=== PATIENT | female | born 1935 | race Caucasian/White ===

== ENCOUNTER 2018-09-24 09:58 | Inpatient (IN) | payer MEDICARE ==
--- NOTE | 2018-09-24 10:39 | ED ---
Female Urogenital HPI - General Chief complaint: Vaginal Bleeding Stated complaint: Bleeding Time Seen by Provider: 09/24/18 10:19 Source: patient Mode of arrival: wheelchair Limitations: no limitations - History of Present Illness Initial comments: Patient is an 83-year-old female presenting for blood in the toilet. The patient states that this morning, she had a bowel movement as well as urination and there is bright red blood in the toilet. She states that showing takes a baby aspirin. She had another small bowel movement a couple hours later as well as urinated and there was no blood on toilet then. She denies any abdominal pain, nausea/vomiting/diarrhea, chest pain, shortness of breath as well as fevers or chills. She states that about a month ago, she was hospitalized for urinary tract infection but has been fine since then. She states that she does have her years and she is not sure if the blood was coming from her rectum and vagina or bladder. - Related Data Home Medications Medication Instructions Recorded Confirmed Albuterol Inhaler [Ventolin Hfa 2 puff INHALATION RT-BID 09/24/18 09/24/18 Inhaler] Aspirin [[place] Aspirin EC] 81 mg PO DAILY 09/24/18 09/24/18 Ferrous Sulfate [Iron] 325 mg PO DAILY 09/24/18 09/24/18 Omeprazole 20 mg PO BID 09/24/18 09/24/18 Potassium Chloride ER [K-Dur 10] 10 meq PO DAILY 09/24/18 09/24/18 Spironolactone [Aldactone] 25 mg PO BID 09/24/18 09/24/18 Vit D 50mcg 50 mcg PO DAILY 09/24/18 09/24/18 Allergies Allergy/AdvReac Type Severity Reaction Status Date / Time No Known Allergies Allergy Verified 09/24/18 10:59 Review of Systems ROS Statement: Those systems with pertinent positive or pertinent negative responses have been documented in the HPI. Constitutional: Negative for chills, fatigue and fever. HENT: Negative for congestion. Respiratory: Negative for chest tightness, shortness of breath and wheezing. Negative for cough Cardiovascular: Negative for chest pain and palpitations. Gastrointestinal: Negative for abdominal pain. Negative for abdominal distention, diarrhea, nausea and vomiting. Genitourinary: Negative for dysuria. Bleeding from genitourinary area. Musculoskeletal: Negative for back pain, neck pain and neck stiffness. Skin: Negative for color change. Neurological: Negative for dizziness, speech difficulty, weakness and light- headedness. Psychiatric/Behavioral: Negative for agitation and confusion. Negative for anxiety ROS Other: All systems not noted in ROS Statement are negative. Past Medical History Past Medical History: CVA/TIA, GERD/Reflux, Hyperlipidemia Additional Past Medical History / Comment(s): lymphedema, UTI History of Any Multi-Drug Resistant Organisms: None Reported Past Surgical History: Appendectomy, Cholecystectomy Past Psychological History: No Psychological Hx Reported Smoking Status: Never smoker Past Alcohol Use History: None Reported Past Drug Use History: None Reported General Exam - General Exam Comments Initial Comments: Constitutional: Pt appears well-developed and well-nourished. No distress. Head: Normocephalic and atraumatic. Eyes: EOM are normal. Neck: Normal range of motion. Neck supple. Cardiovascular: Normal rate, regular rhythm, S1 normal, S2 normal and normal heart sounds. Exam reveals no gallop and no friction rub. No murmur heard. Pulmonary/Chest: Effort normal and breath sounds normal. No tachypnea and no bradypnea. No respiratory distress. No wheezes or rales noted. Abdominal: Soft. Bowel sounds are normal. Pt exhibits no shifting dullness, no distension, no pulsatile liver, no fluid wave, no abdominal bruit and no ascites. There is no rigidity, no rebound, no guarding, no tenderness at McBurney's point and negative Turner's sign. There is no tenderness. Musculoskeletal: Normal range of motion. Neurological: Pt is alert and oriented to person, place, and time. No cranial nerve deficit. Skin: Skin is warm and dry. No rash noted. Pt is not diaphoretic. No erythema. No pallor. Psychiatric: Pt has a normal mood and affect. Pt behavior is normal. Thought content normal. Limitations: no limitations Course Vital Signs 09/24/18 09/24/18 09/24/18 10:10 11:00 12:00 Temperature 96 F L Pulse Rate 77 77 79 Respiratory 18 15 18 Rate Blood Pressure 101/55 110/50 109/65 O2 Sat by Pulse 97 96 96 Oximetry Medical Decision Making - Medical Decision Making Laboratory studies showed that hemoglobin was stable to 11.3 but there was evidence of transaminitis with AST measuring 100, ALT 6 C5 and alk phos 289. However, because the patient was not having any pain and stated that she was also scheduled to follow-up with GI doctor tomorrow, imaging was not completed. More concerning, patient was guaiac positive and has Darvocet opinion with a platelet count of 50. Because of this, patient will need to be admitted for further evaluation and was started on Protonix. Urinalysis was consistent with a urinary tract infection and therefore she will also be given Rocephin. Explained all labs and diagnostic test results and that we will admit patient to hospital. Pt is agreeable to plan and case has been discussed with Dr. Lyle and they agree to accept the pt. - Lab Data Result diagrams: 09/24/18 10:50 09/24/18 10:50 Lab Results 09/24/18 09/24/18 09/24/18 Range/Units 10:50 10:50 10:50 WBC 4.3 (3.8-10.6) k/uL RBC 3.55 L (3.80-5.40) m/uL Hgb 11.3 L (11.4-16.0) gm/dL Hct 36.2 (34.0-46.0) % MCV 101.8 H (80.0-100.0) fL MCH 31.8 (25.0-35.0) pg MCHC 31.2 (31.0-37.0) g/dL RDW 16.5 H (11.5-15.5) % Plt Count 50 L (150-450) k/uL Neutrophils % 67 % Lymphocytes % 16 % Monocytes % 10 % Eosinophils % 4 % Basophils % 1 % Neutrophils # 2.9 (1.3-7.7) k/uL Lymphocytes # 0.7 L (1.0-4.8) k/uL Monocytes # 0.4 (0-1.0) k/uL Eosinophils # 0.2 (0-0.7) k/uL Basophils # 0.0 (0-0.2) k/uL Manual Slide Review Performed Hypochromasia Slight Anisocytosis Slight Macrocytosis Moderate PT 12.8 H (9.0-12.0) sec INR 1.2 H (<1.2) APTT 28.1 (22.0-30.0) sec Sodium 138 (137-145) mmol/L Potassium 5.4 H (3.5-5.1) mmol/L Chloride 106 (98-107) mmol/L Carbon Dioxide 27 (22-30) mmol/L Anion Gap 5 mmol/L BUN 25 H (7-17) mg/dL Creatinine 0.84 (0.52-1.04) mg/dL Est GFR (CKD-EPI)AfAm 74 (>60 ml/min/1.73 sqM) Est GFR (CKD-EPI)NonAf 64 (>60 ml/min/1.73 sqM) Glucose 98 (74-99) mg/dL Calcium 9.6 (8.4-10.2) mg/dL Magnesium 1.7 (1.6-2.3) mg/dL Total Bilirubin 2.3 H (0.2-1.3) mg/dL AST 100 H (14-36) U/L ALT 65 H (9-52) U/L Alkaline Phosphatase 289 H (38-126) U/L Troponin I (0.000-0.034) ng/mL Total Protein 5.4 L (6.3-8.2) g/dL Albumin 2.8 L (3.5-5.0) g/dL Urine Color Urine Appearance (Clear) Urine RBC (0-5) /hpf Urine WBC (0-5) /hpf Stool Occult Blood (Negative) 09/24/18 09/24/18 09/24/18 Range/Units 10:50 11:42 11:42 WBC (3.8-10.6) k/uL RBC (3.80-5.40) m/uL Hgb (11.4-16.0) gm/dL Hct (34.0-46.0) % MCV (80.0-100.0) fL MCH (25.0-35.0) pg MCHC (31.0-37.0) g/dL RDW (11.5-15.5) % Plt Count (150-450) k/uL Neutrophils % % Lymphocytes % % Monocytes % % Eosinophils % % Basophils % % Neutrophils # (1.3-7.7) k/uL Lymphocytes # (1.0-4.8) k/uL Monocytes # (0-1.0) k/uL Eosinophils # (0-0.7) k/uL Basophils # (0-0.2) k/uL Manual Slide Review Hypochromasia Anisocytosis Macrocytosis PT (9.0-12.0) sec INR (<1.2) APTT (22.0-30.0) sec Sodium (137-145) mmol/L Potassium (3.5-5.1) mmol/L Chloride (98-107) mmol/L Carbon Dioxide (22-30) mmol/L Anion Gap mmol/L BUN (7-17) mg/dL Creatinine (0.52-1.04) mg/dL Est GFR (CKD-EPI)AfAm (>60 ml/min/1.73 sqM) Est GFR (CKD-EPI)NonAf (>60 ml/min/1.73 sqM) Glucose (74-99) mg/dL Calcium (8.4-10.2) mg/dL Magnesium (1.6-2.3) mg/dL Total Bilirubin (0.2-1.3) mg/dL AST (14-36) U/L ALT (9-52) U/L Alkaline Phosphatase (38-126) U/L Troponin I <0.012 (0.000-0.034) ng/mL Total Protein (6.3-8.2) g/dL Albumin (3.5-5.0) g/dL Urine Color Dark Red Urine Appearance Bloody H (Clear) Urine RBC >182 H (0-5) /hpf Urine WBC 72 H (0-5) /hpf Stool Occult Blood Positive H (Negative) Disposition Clinical Impression: GI bleeding, Thrombocytopenia, Transaminitis, Urinary tract infection Disposition: ADMITTED IP TO THIS [facility] Condition: Fair Referrals: Tera Marsh MD [Primary Care Provider] - 1-2 days Decision to Admit Reason: Admit from EC Decision Date: 09/24/18 Decision Time: 12:54
[2018-09-24 11:21] LABS: Albumin 2.8 g/dL (3.5-5.0); Calcium 9.6 mg/dL (8.4-10.2); INR 1.2 (<1.2); Magnesium 1.7 mg/dL (1.6-2.3); Partial Thromboplastin Time 28.1 sec (22.0-30.0); Potassium 5.4 mmol/L (3.5-5.1); Prothrombin Time 12.8 sec (9.0-12.0); Total Bilirubin 2.3 mg/dL (0.2-1.3); Total Protein 5.4 g/dL (6.3-8.2)
[2018-09-24 11:46] LABS: Anisocytosis Slight; Basophils % (A) 1 %; Eosinophils # (A) 0.2 k/uL (0-0.7); Eosinophils % (A) 4 %; HCT 36.2 % (34.0-46.0); HGB 11.3 gm/dL (11.4-16.0); Hypochromasia Slight; Lymphocytes # (A) 0.7 k/uL (1.0-4.8); Lymphocytes % (A) 16 %; MCH 31.8 pg (25.0-35.0); MCHC 31.2 g/dL (31.0-37.0); MCV 101.8 fL (80.0-100.0); Macrocytosis Moderate; Mean Platelet Volume 9.3; Monocytes # (A) 0.4 k/uL (0-1.0); Monocytes % (A) 10 %; Neutrophils # (A) 2.9 k/uL (1.3-7.7); Neutrophils % (A) 67 %; RBC 3.55 m/uL (3.80-5.40); RDW 16.5 % (11.5-15.5); WBC 4.3 k/uL (3.8-10.6)
[2018-09-24 12:11] LABS: Platelet Count 50 k/uL (150-450)
[2018-09-24 12:23] LABS: RBC,Urine >182 /hpf (0-5); WBC,Urine 72 /hpf (0-5)
[2018-09-24 12:24] LABS: Appearance,Urine Bloody (Clear)
[2018-09-24 12:25] LABS: Color,Urine Dark Red
[2018-09-24] MEDS ORDERED: PANTOPRAZOLE 40 MG/10 ML VIAL IVP STA (12:50)
[2018-09-24] MEDS ORDERED: NALOXONE 0.4 MG/ML 1 ML VIAL IV PRN (12:50)
[2018-09-24] MEDS: SODIUM CHLORIDE 0.9% 1,000 ML IV SCH (13:31)
[2018-09-24] MEDS ORDERED: DEXTROSE 50%-WATER 50 ML SYRINGE IVP STA (15:45)
[2018-09-24] MEDS ORDERED: INSULIN REGULAR 100 UNIT/ML VIAL IV ONE (15:45)
--- NOTE | 2018-09-24 15:53 | P.HPIM ---
History of Present Illness H&P Date: 09/24/18 Chief Complaint: Fresh blood per rectum 83-year-old female with history of GERD and hyperlipidemia, and lymphedema Patient presented the hospital due to sudden onset fresh red blood per rectum. Patient is at her baseline status of health however she was hospitalized a month ago for UTI since then she's been debilitated. She is a walker to ambulate. Today she was using the restroom in the morning when she noticed blood in the toilet bowl for which she can't hospital for further evaluation patient denies any abdominal pain nausea vomiting denies any history of GI bleeding. Patient had another bowel movement later however she did not sense any blood in the toilet bowl. Patient also reports some dizziness and postural in nature however again she mentioned debility since her most recent hospitalization with ago. Where she was treated for UTI. Patient also reports outpatient workup with GI currently going on for possible obstructive jaundice patient had hepatitis panel done recently and was negative. She was scheduled to have further testing and a follow-up with GI on Wednesday. Patient denies taking any NSAIDs at home however she takes low dose of aspirin. In the ER pelvic exam was done and it seems like the bleeding is not vaginal per ER reports. Patient tested positive guaiac. Currently patient laying comfortable in bed not in any distress denies any s ymptoms of chest pain or trouble breathing or any abdominal pain. Denies any nausea or vomiting. Patient reports that she had a C scope many years ago and never had any abnormalities to her knowledge. Patient was found to have low platelet count of 50 however she denies any other sources of bleeding except for recent epistaxis Patient hemoglobin was 11.3 but we don't have any baseline Review of Systems Pertinent positives as noted in HPI. All other systems were reviewed and are negative Past Medical History Past Medical History: GERD/Reflux, Hyperlipidemia, Osteoarthritis (OA) Additional Past Medical History / Comment(s): lymphedema, UTI History of Any Multi-Drug Resistant Organisms: None Reported Past Surgical History: Appendectomy, Cholecystectomy, Orthopedic Surgery Additional Past Surgical History / Comment(s): right total knee Past Psychological History: No Psychological Hx Reported Smoking Status: Never smoker Past Alcohol Use History: None Reported Past Drug Use History: None Reported - Past Family History Mother History Unknown: Yes Father History Unknown: Yes Brother(s) Family Medical History: Dementia Daughter(s) Family Medical History: Thyroid Disorder Medications and Allergies Home Medications Medication Instructions Recorded Confirmed Type Albuterol Inhaler [Ventolin Hfa 2 puff INHALATION RT-BID 09/24/18 09/24/18 History Inhaler] Aspirin [[place] Aspirin EC] 81 mg PO DAILY 09/24/18 09/24/18 History Ferrous Sulfate [Iron] 325 mg PO DAILY 09/24/18 09/24/18 History Omeprazole 20 mg PO BID 09/24/18 09/24/18 History Potassium Chloride ER [K-Dur 10] 10 meq PO DAILY 09/24/18 09/24/18 History Spironolactone [Aldactone] 25 mg PO BID 09/24/18 09/24/18 History Vit D 50mcg 50 mcg PO DAILY 09/24/18 09/24/18 History Allergies Allergy/AdvReac Type Severity Reaction Status Date / Time No Known Allergies Allergy Verified 09/24/18 10:59 Physical Exam Vitals: Vital Signs Temp Pulse Pulse Resp BP BP Pulse Ox 09/24/18 15:12 65 18 112/69 09/24/18 13:50 96.9 F L 09/24/18 13:25 71 18 105/75 97 09/24/18 12:00 79 18 109/65 96 09/24/18 11:00 77 15 110/50 96 09/24/18 10:10 96 F L 77 18 101/55 97 Intake and Output 09/24/18 09/24/18 09/24/18 06:59 14:59 22:59 Other: # Voids 0 # Bowel Movements 0 Weight 132.812 kg Constitutional: No acute distress, conversant, pleasant Eyes: Anicteric sclerae, moist conjunctiva, no lid-lag Pupils equal round reactive to light ENMT: NC/AT Oropharynx clear, no erythema, exudates Neck: Supple, FROM, no masses, or JVD No carotid bruits No thyromegaly Lungs: Clear to auscultation Clear to percussion Normal respiratory effort, no accessory muscle use Cardiovascular: Heart regular in rate and rhythm, No murmurs, gallops, or rubs +2 peripheral edema bilaterally Abdominal: Soft Nontender, no guarding, rebound or rigidity Abdomen moving with respiration Normoactive bowel sounds No hepatomegaly, No splenomegaly No palpable mass No abdominal wall hernia noted Skin: There is area of skin sloughing and redness erythema over the lower abdomen and bilateral groins with foul smell no tenderness to palpation moist to the touch Normal temperature, tone, texture, turgor No induration No subcutaneous nodules No lesions No ulcers Extremities: No digital cyanosis No clubbing Pedal pulses are difficult to palpate due to bilateral foot swelling Radial pulses intact and symmetrical No calf tenderness Psychiatric: Alert and oriented to person, place not oriented to time Appropriate affect fair judgment Neuro Muscles Strength 4/5 in all 4 extremities Sensation to light touch grossly present throughout Cranial nerves II-XII grossly intact No focal sensory deficits Lymphatics: no palpable cervical or supraclavicular , or inguinal lymph nodes Results CBC & Chem 7: 09/24/18 10:50 09/24/18 10:50 Labs: Abnormal Lab Results - Last 24 Hours (Table) 09/24/18 09/24/18 09/24/18 Range/Units 10:50 10:50 10:50 RBC 3.55 L (3.80-5.40) m/uL Hgb 11.3 L (11.4-16.0) gm/dL MCV 101.8 H (80.0-100.0) fL RDW 16.5 H (11.5-15.5) % Plt Count 50 L (150-450) k/uL Lymphocytes # 0.7 L (1.0-4.8) k/uL PT 12.8 H (9.0-12.0) sec INR 1.2 H (<1.2) Potassium 5.4 H (3.5-5.1) mmol/L BUN 25 H (7-17) mg/dL Total Bilirubin 2.3 H (0.2-1.3) mg/dL AST 100 H (14-36) U/L ALT 65 H (9-52) U/L Alkaline Phosphatase 289 H (38-126) U/L Total Protein 5.4 L (6.3-8.2) g/dL Albumin 2.8 L (3.5-5.0) g/dL Urine Appearance (Clear) Urine RBC (0-5) /hpf Urine WBC (0-5) /hpf Stool Occult Blood (Negative) 09/24/18 09/24/18 Range/Units 11:42 11:42 RBC (3.80-5.40) m/uL Hgb (11.4-16.0) gm/dL MCV (80.0-100.0) fL RDW (11.5-15.5) % Plt Count (150-450) k/uL Lymphocytes # (1.0-4.8) k/uL PT (9.0-12.0) sec INR (<1.2) Potassium (3.5-5.1) mmol/L BUN (7-17) mg/dL Total Bilirubin (0.2-1.3) mg/dL AST (14-36) U/L ALT (9-52) U/L Alkaline Phosphatase (38-126) U/L Total Protein (6.3-8.2) g/dL Albumin (3.5-5.0) g/dL Urine Appearance Bloody H (Clear) Urine RBC >182 H (0-5) /hpf Urine WBC 72 H (0-5) /hpf Stool Occult Blood Positive H (Negative) Thrombosis Risk Factor Assmnt - Choose All That Apply Any of the Below Risk Factors Present?: Yes Each Factor Represents 1 point: Obesity (BMI >25), Swollen legs (current) Other Risk Factors: Yes Each Risk Factor Represents 3 Points: Age 75 years or older Thrombosis Risk Factor Assessment Total Risk Factor Score: 5 Thrombosis Risk Factor Assessment Level: High Risk Assessment and Plan Assessment: 83-year-old female with no significant past medical history admitted to an inpatient with anticipated length of stay more than 48 hours due to sudden onset GI bleeding with fresh red blood per rectum patient found to have thrombocytopenia and anemia admitted for further care and evaluation. Plan: acute blood loss anemia GI bleeding Subacute Transaminitis, elevated liver enzymes and bilirubin , negative recent testing for hepatitis mild hyperkalemia Thrombocytopenia Intertriginous candidal skin infection bilateral chronic lymphedema plan NPO IVF hydration monitor H and H q8 hours GI consult Hematology consult monitor vital signs fall precaution s PT/OT IV insulin and D50 and follow up K level Nystatin and triamcinolone to lower abdomen Discontinue antibiotics patient denies any urinary symptoms at this time. DVT ppx, SCDs Preformed a thorough record review from recent hospitalization at a different facility where she remained for 2 weeks was treated for UTI. There was one month ago. Surrogate decision-maker: *Patient daughter CODE STATUS: Full code Discussed with: Patient, ER, RN Anticipated discharge: 48-[address]: Home A total of 60 minutes was spent on the care of this complex patient more than 50% of the time was spent in counseling and care coordination.
[2018-09-24 16:14] LABS: Anisocytosis Slight; HCT 35.6 % (34.0-46.0); HGB 11.2 gm/dL (11.4-16.0); Hypochromasia Slight; MCHC 31.5 g/dL (31.0-37.0); MCV 101.7 fL (80.0-100.0); Macrocytosis Slight; Mean Platelet Volume 9.8; RDW 16.5 % (11.5-15.5); WBC 4.4 k/uL (3.8-10.6)
[2018-09-24 16:15] LABS: Platelet Count 43 k/uL (150-450)
[2018-09-24] MEDS ORDERED: NYSTATIN 100,000 UNIT/GM OINT 30 GM TUBE TOPICAL SCH (18:00)
[2018-09-24] MEDS ORDERED: NYSTAT-TRIAMCIN 100,000-0.1 UNIT/GM-% OINT 30 GM TUBE TOPICAL SCH (18:00)
[2018-09-24] MEDS: TRIAMCINOLONE ACET 0.1% OINTMENT 15 GM TUBE TOPICAL SCH ×2 (18:03→23:16)
[2018-09-24] MEDS: PANTOPRAZOLE 40 MG TABLET PO SCH (18:03)
[2018-09-24] MEDS: NYSTATIN 100,000 UNIT/GM OINT 30 GM TUBE TOPICAL SCH ×2 (18:03→23:16)
[2018-09-24] MEDS ORDERED: ALBUTEROL NEBULIZED 2.5 MG/3 ML INHALATION SCH (20:00)
[2018-09-24] MEDS: ALBUTEROL NEBULIZED 2.5 MG/3 ML INHALATION PRN (23:33)
[2018-09-25 00:49] LABS: Anisocytosis Slight; HCT 32.4 % (34.0-46.0); HGB 10.6 gm/dL (11.4-16.0); MCH 32.7 pg (25.0-35.0); MCHC 32.8 g/dL (31.0-37.0); MCV 99.8 fL (80.0-100.0); Macrocytosis Slight; Mean Platelet Volume 10.1; RBC 3.24 m/uL (3.80-5.40); RDW 17.8 % (11.5-15.5); WBC 4.1 k/uL (3.8-10.6)
[2018-09-25 00:52] LABS: Platelet Count 45 k/uL (150-450)
[2018-09-25] MEDS: SODIUM CHLORIDE 0.9% 1,000 ML IV SCH ×2 (03:54→14:04)
[2018-09-25] MEDS: PANTOPRAZOLE 40 MG TABLET PO SCH ×2 (06:25→17:20)
[2018-09-25 06:52] LABS: INR 1.3 (<1.2); Partial Thromboplastin Time 31.2 sec (22.0-30.0); Prothrombin Time 13.6 sec (9.0-12.0)
[2018-09-25 06:55] LABS: Anisocytosis Slight; Hypochromasia Slight
[2018-09-25 06:57] LABS: HCT 33.8 % (34.0-46.0); HGB 10.9 gm/dL (11.4-16.0); MCH 32.9 pg (25.0-35.0); MCHC 32.4 g/dL (31.0-37.0); MCV 101.7 fL (80.0-100.0); Macrocytosis Moderate; RBC 3.32 m/uL (3.80-5.40); WBC 3.9 k/uL (3.8-10.6)
[2018-09-25 06:58] LABS: Platelet Count 60 k/uL (150-450)
[2018-09-25 07:04] LABS: Albumin 2.5 g/dL (3.5-5.0); Calcium 9.3 mg/dL (8.4-10.2); Potassium 4.8 mmol/L (3.5-5.1); Total Bilirubin 1.9 mg/dL (0.2-1.3); Total Protein 4.9 g/dL (6.3-8.2)
[2018-09-25 07:27] LABS: Eosinophils # (M) 0.23 k/uL (0-0.7); Monocytes # (M) 0.43 k/uL (0-1.0); Neutrophils # (M) 2.57 k/uL (1.3-7.7); Neutrophils % (M) 66 %; Nucleated Red Blood Cells 1 /100 WBC (0-0); Total Cells Counted 200
[2018-09-25] MEDS: TRIAMCINOLONE ACET 0.1% OINTMENT 15 GM TUBE TOPICAL SCH ×4 (10:13→22:03)
[2018-09-25] MEDS: NYSTATIN 100,000 UNIT/GM OINT 30 GM TUBE TOPICAL SCH ×4 (10:14→22:03)
[2018-09-25 12:57] LABS: Anisocytosis Slight; Basophils % (A) 1 %; Eosinophils # (A) 0.1 k/uL (0-0.7); Eosinophils % (A) 3 %; HCT 32.6 % (34.0-46.0); HGB 10.6 gm/dL (11.4-16.0); Lymphocytes # (A) 0.5 k/uL (1.0-4.8); Lymphocytes % (A) 12 %; MCH 32.2 pg (25.0-35.0); MCHC 32.6 g/dL (31.0-37.0); MCV 98.7 fL (80.0-100.0); Macrocytosis Slight; Mean Platelet Volume 10.5; Monocytes # (A) 0.4 k/uL (0-1.0); Monocytes % (A) 9 %; Neutrophils # (A) 3.1 k/uL (1.3-7.7); Neutrophils % (A) 73 %; RDW 17.6 % (11.5-15.5); WBC 4.3 k/uL (3.8-10.6)
[2018-09-25 13:05] LABS: Platelet Count 54 k/uL (150-450)
[2018-09-25 13:08] LABS: Reticulocyte % 2.7 % (0.5-2.0)
[2018-09-25 13:45] LABS: D-Dimer 1.28 mg/L FEU (<0.60)
[2018-09-25] MEDS ORDERED: FUROSEMIDE 10 MG/ML 4 ML VIAL IV STA (15:45)
--- NOTE | 2018-09-25 15:46 | P.PN ---
Subjective Progress Note Date: 09/25/18 Principal diagnosis: follow up for GI bleeding and thrombocytopenia patient seen and examined , again still having bright red blood per rectum. however source is still confused at time with vaginal , with the possibility of bleeding from both sites. denies any chest pain or trouble breathing. toerlating PO intake Objective - Vital Signs Vital signs: Vital Signs Temp 96.5 F L 09/25/18 11:30 Pulse 83 09/25/18 11:30 Resp 18 09/25/18 11:30 BP 102/64 09/25/18 11:30 Pulse Ox 93 L 09/25/18 11:30 Intake & Output 09/24/18 09/25/18 09/25/18 18:59 06:59 18:59 Intake Total 360 480 Output Total 200 Balance 360 -200 480 Weight 132.812 kg 125.6 kg Intake: Oral 360 480 Output: Urine 200 Other: # Voids 0 1 1 # Bowel Movements 0 1 - Exam Constitutional: vital signs stable, Not in acute distress, pleasant, conversant , anasarca Lungs: Clear to auscultation bilaterally, clear to percussion, normal resp iratory effort no use of accessory muscles Cardiovascular: Regular rate and rhythm, no murmurs, no gallops, no rubs, +2 peripheral edema bialteral upper and lower extremities (chronic in her lower ext remities but new in her upper extremities) Gastrointestinal: Soft, no tenderness to palpation, no palpable hepatosplenomegally, bowel sounds positive, no abdominal wall hernias Extremities: No digital cyanosis or clubbing, peripheral pulses palpable and equal over bilateral radial arteries no calf muscle tenderness Psych: Alert, oriented to place, person and time, appropriate affect, intact ju dgment - Labs CBC & Chem 7: 09/25/18 12:03 09/25/18 06:17 Labs: Abnormal Lab Results - Last 24 Hours (Table) 09/24/18 09/25/18 09/25/18 Range/Units 15:28 00:39 06:17 RBC 3.50 L 3.24 L 3.32 L (3.80-5.40) m/uL Hgb 11.2 L 10.6 L 10.9 L (11.4-16.0) gm/dL Hct 32.4 L 33.8 L (34.0-46.0) % MCV 101.7 H 101.7 H (80.0-100.0) fL RDW 16.5 H 17.8 H 18.0 H (11.5-15.5) % Plt Count 43 L 45 L 60 L (150-450) k/uL Lymphocytes # (1.0-4.8) k/uL Lymphocytes # (Manual) 0.70 L (1.0-4.8) k/uL Nucleated RBCs 1 H (0-0) /100 WBC Retic Count (0.5-2.0) % PT (9.0-12.0) sec INR (<1.2) APTT (22.0-30.0) sec Fibrinogen (200-500) mg/dL D-Dimer (<0.60) mg/L FEU BUN (7-17) mg/dL Glucose (74-99) mg/dL Total Bilirubin (0.2-1.3) mg/dL AST (14-36) U/L ALT (9-52) U/L Alkaline Phosphatase (38-126) U/L Lactate Dehydrogenase (313-618) U/L Total Protein (6.3-8.2) g/dL Albumin (3.5-5.0) g/dL 09/25/18 09/25/18 09/25/18 Range/Units 06:17 06:17 12:03 RBC 3.30 L (3.80-5.40) m/uL Hgb 10.6 L (11.4-16.0) gm/dL Hct 32.6 L (34.0-46.0) % MCV (80.0-100.0) fL RDW 17.6 H (11.5-15.5) % Plt Count 54 L (150-450) k/uL Lymphocytes # 0.5 L (1.0-4.8) k/uL Lymphocytes # (Manual) (1.0-4.8) k/uL Nucleated RBCs (0-0) /100 WBC Retic Count (0.5-2.0) % PT 13.6 H (9.0-12.0) sec INR 1.3 H (<1.2) APTT 31.2 H (22.0-30.0) sec Fibrinogen (200-500) mg/dL D-Dimer (<0.60) mg/L FEU BUN 28 H (7-17) mg/dL Glucose 62 L (74-99) mg/dL Total Bilirubin 1.9 H (0.2-1.3) mg/dL AST 77 H (14-36) U/L ALT 64 H (9-52) U/L Alkaline Phosphatase 244 H (38-126) U/L Lactate Dehydrogenase (313-618) U/L Total Protein 4.9 L (6.3-8.2) g/dL Albumin 2.5 L (3.5-5.0) g/dL 09/25/18 09/25/18 09/25/18 Range/Units 12:03 12:03 12:03 RBC (3.80-5.40) m/uL Hgb (11.4-16.0) gm/dL Hct (34.0-46.0) % MCV (80.0-100.0) fL RDW (11.5-15.5) % Plt Count (150-450) k/uL Lymphocytes # (1.0-4.8) k/uL Lymphocytes # (Manual) (1.0-4.8) k/uL Nucleated RBCs (0-0) /100 WBC Retic Count 2.7 H (0.5-2.0) % PT (9.0-12.0) sec INR (<1.2) APTT (22.0-30.0) sec Fibrinogen 130 L (200-500) mg/dL D-Dimer 1.28 H (<0.60) mg/L FEU BUN (7-17) mg/dL Glucose (74-99) mg/dL Total Bilirubin (0.2-1.3) mg/dL AST (14-36) U/L ALT (9-52) U/L Alkaline Phosphatase (38-126) U/L Lactate Dehydrogenase 697 H (313-618) U/L Total Protein (6.3-8.2) g/dL Albumin (3.5-5.0) g/dL Microbiology - Last 24 Hours (Table) 09/24/18 11:42 Urine Culture - Preliminary Urine,Voided Assessment and Plan Assessment: 83-year-old female with no significant past medical history admitted to an inpatient with anticipated length of stay more than 48 hours due to sudden onset GI bleeding with fresh red blood per rectum patient found to have thrombocytopenia and anemia admitted for further care and evaluation. ER attending yesterday confirmed verbally that he did vaginal exam and there was no blood. family confirmed to me today that ER attending did perform vaginal exam to their knowledge. However , my physical exam yesterday i noticed blood over the vulva and pubic area. and today RN voiced suspicion of vaginal bleed as an extra source on top of the rectal bleed. Hence will get [employer] input for proper vaginal exam to rule out vaginal bleeding Plan: acute blood loss anemia, hemoglobin stable now GI bleeding , FOBT positive. suspicious Vaginal bleeding will obtain [employer] consult Subacute Transaminitis, elevated liver enzymes and bilirubin , negative recent testing for hepatitis was confirmed, liver enzymes improving today mild hyperkalemia, resolved Thrombocytopenia, unkown cause Intertriginous candidal skin infection, improving acute bilateral upper extremity swelling , and bilateral chronic lymphedema moderate protein calorie malnutrition plan liquid diet as tolerated DC IVF IV diuresis monitor H and H daily GI consult Hematology consult monitor vital signs fall precaution s PT/OT Nystatin and triamcinolone to lower abdomen patient was recently treated for UTI, currently denies any urinary symptoms . ABx discontinued DVT ppx, SCDs
--- NOTE | 2018-09-25 16:23 | P.CONS ---
History of Present Illness - Reason for Consult Consult date: 09/25/18 Anemia, Thrombocytopenia Requesting physician: Ricky Lyle - Chief Complaint Rectal Bleeding - History of Present Illness Ms Haynes presents to [facility] for complaints of rectal bleeding. She was recently hospitalized at [facility] for UTI and Debility, discharged to inpatient rehabilitation and since discharged home. She noticed the day prior to admission she was using the restroom and their was blood in the toilet and after wiping. She therefore presented for further evaluation. She denies any history of malignancy, bleeding issues, anemia, low platelets, or utilizing NSAIDS at home, however she does take a low dose aspirin that has since been stopped. ER evaluation consisted of a pelvic exam which did confirm there was not vaginal bleeding. Stool and urine are positive for blood. Last Colonoscopy was greater than 10 years ago She complains of worsening lower ext edema, new upper extremity edema Review of Systems A 14 point review of systems was assessed and completed and all negative except HPI. Past Medical History Past Medical History: GERD/Reflux, Hyperlipidemia, Osteoarthritis (OA) Additional Past Medical History / Comment(s): lymphedema, UTI History of Any Multi-Drug Resistant Organisms: None Reported Past Surgical History: Appendectomy, Cholecystectomy, Orthopedic Surgery Additional Past Surgical History / Comment(s): right total knee Past Psychological History: No Psychological Hx Reported Smoking Status: Never smoker Past Alcohol Use History: None Reported Past Drug Use History: None Reported - Past Family History Mother History Unknown: Yes Father History Unknown: Yes Brother(s) Family Medical History: Dementia Daughter(s) Family Medical History: Thyroid Disorder Medications and Allergies Home Medications Medication Instructions Recorded Confirmed Type Albuterol Inhaler [Ventolin Hfa 2 puff INHALATION RT-BID 09/24/18 09/24/18 History Inhaler] Aspirin [[place] Aspirin EC] 81 mg PO DAILY 09/24/18 09/24/18 History Ferrous Sulfate [Iron] 325 mg PO DAILY 09/24/18 09/24/18 History Omeprazole 20 mg PO BID 09/24/18 09/24/18 History Potassium Chloride ER [K-Dur 10] 10 meq PO DAILY 09/24/18 09/24/18 History Spironolactone [Aldactone] 25 mg PO BID 09/24/18 09/24/18 History Vit D 50mcg 50 mcg PO DAILY 09/24/18 09/24/18 History Allergies Allergy/AdvReac Type Severity Reaction Status Date / Time No Known Allergies Allergy Verified 09/24/18 10:59 Physical Exam Vitals: Vital Signs Temp Pulse Pulse Resp BP Pulse Ox 09/25/18 11:30 96.5 F L 83 18 102/64 93 L 09/25/18 09:10 96.6 F L 85 18 100/65 94 L 09/25/18 04:00 97 F L 74 16 106/68 97 09/25/18 00:00 97 F L 74 16 106/68 96 09/24/18 23:43 74 09/24/18 23:33 74 09/24/18 20:00 97 F L 76 16 129/77 95 Intake and Output 09/25/18 09/25/18 09/25/18 06:59 14:59 22:59 Intake Total 480 Output Total 200 Balance -200 480 Intake: Oral 480 Output: Urine 200 Other: # Voids 1 # Bowel Movements 1 Weight 125.6 kg Gen: NAD, Alert and oriented. Head: NC, NT No Cervical, Supraclavicular, or axillary adenopathy Neck is supple Lungs: Diminished, No increased effort Heart: RRR, S1s2 Abdomen: Obese, Non-tender, Non Distended Extremities BLE Edema, New Bilateral Upper extremity edema Neuro: No sensory or motor deficits. Results CBC & Chem 7: 09/25/18 12:03 09/25/18 06:17 Labs: Abnormal Lab Results - Last 24 Hours (Table) 09/24/18 09/25/18 09/25/18 Range/Units 15:28 00:39 06:17 RBC 3.50 L 3.24 L 3.32 L (3.80-5.40) m/uL Hgb 11.2 L 10.6 L 10.9 L (11.4-16.0) gm/dL Hct 32.4 L 33.8 L (34.0-46.0) % MCV 101.7 H 101.7 H (80.0-100.0) fL RDW 16.5 H 17.8 H 18.0 H (11.5-15.5) % Plt Count 43 L 45 L 60 L (150-450) k/uL Lymphocytes # (1.0-4.8) k/uL Lymphocytes # (Manual) 0.70 L (1.0-4.8) k/uL Nucleated RBCs 1 H (0-0) /100 WBC Retic Count (0.5-2.0) % PT (9.0-12.0) sec INR (<1.2) APTT (22.0-30.0) sec Fibrinogen (200-500) mg/dL D-Dimer (<0.60) mg/L FEU BUN (7-17) mg/dL Glucose (74-99) mg/dL Total Bilirubin (0.2-1.3) mg/dL AST (14-36) U/L ALT (9-52) U/L Alkaline Phosphatase (38-126) U/L Lactate Dehydrogenase (313-618) U/L Total Protein (6.3-8.2) g/dL Albumin (3.5-5.0) g/dL 09/25/18 09/25/18 09/25/18 Range/Units 06:17 06:17 12:03 RBC 3.30 L (3.80-5.40) m/uL Hgb 10.6 L (11.4-16.0) gm/dL Hct 32.6 L (34.0-46.0) % MCV (80.0-100.0) fL RDW 17.6 H (11.5-15.5) % Plt Count 54 L (150-450) k/uL Lymphocytes # 0.5 L (1.0-4.8) k/uL Lymphocytes # (Manual) (1.0-4.8) k/uL Nucleated RBCs (0-0) /100 WBC Retic Count (0.5-2.0) % PT 13.6 H (9.0-12.0) sec INR 1.3 H (<1.2) APTT 31.2 H (22.0-30.0) sec Fibrinogen (200-500) mg/dL D-Dimer (<0.60) mg/L FEU BUN 28 H (7-17) mg/dL Glucose 62 L (74-99) mg/dL Total Bilirubin 1.9 H (0.2-1.3) mg/dL AST 77 H (14-36) U/L ALT 64 H (9-52) U/L Alkaline Phosphatase 244 H (38-126) U/L Lactate Dehydrogenase (313-618) U/L Total Protein 4.9 L (6.3-8.2) g/dL Albumin 2.5 L (3.5-5.0) g/dL 09/25/18 09/25/18 09/25/18 Range/Units 12:03 12:03 12:03 RBC (3.80-5.40) m/uL Hgb (11.4-16.0) gm/dL Hct (34.0-46.0) % MCV (80.0-100.0) fL RDW (11.5-15.5) % Plt Count (150-450) k/uL Lymphocytes # (1.0-4.8) k/uL Lymphocytes # (Manual) (1.0-4.8) k/uL Nucleated RBCs (0-0) /100 WBC Retic Count 2.7 H (0.5-2.0) % PT (9.0-12.0) sec INR (<1.2) APTT (22.0-30.0) sec Fibrinogen 130 L (200-500) mg/dL D-Dimer 1.28 H (<0.60) mg/L FEU BUN (7-17) mg/dL Glucose (74-99) mg/dL Total Bilirubin (0.2-1.3) mg/dL AST (14-36) U/L ALT (9-52) U/L Alkaline Phosphatase (38-126) U/L Lactate Dehydrogenase 697 H (313-618) U/L Total Protein (6.3-8.2) g/dL Albumin (3.5-5.0) g/dL Microbiology - Last 24 Hours (Table) 09/24/18 11:42 Urine Culture - Preliminary Urine,Voided Assessment and Plan (1) Normocytic anemia Current Visit: Yes Status: Acute Code(s): D64.9 - ANEMIA, UNSPECIFIED SNOMED Code(s): 920139233 (2) GI bleeding Current Visit: Yes Status: Acute Code(s): K92.2 - GASTROINTESTINAL HEMORRHAGE, UNSPECIFIED SNOMED Code(s): 03158765 (3) Thrombocytopenia Current Visit: Yes Status: Acute Code(s): D69.6 - THROMBOCYTOPENIA, UNSPECIFIED SNOMED Code(s): 797617547 (4) Transaminitis Current Visit: Yes Status: Acute Code(s): R74.0 - NONSPEC ELEV OF LEVELS OF TRANSAMNS & LACTIC ACID DEHYDRGNSE SNOMED Code(s): 240843342 (5) Urinary tract infection Current Visit: Yes Status: Acute Code(s): N39.0 - URINARY TRACT INFECTION, SITE NOT SPECIFIED SNOMED Code(s): 43766866 Plan: Assessment and Recommendations: Normocytic Anemia: Secondary to acute GI Blood Loss Anemia - Further Anemia work-up ordered - Full GI Evaluation Recommended UTI: - In August at [facility] Cultures Positive Citrobacter Younge and Fatoumata - Requiring Prolonged Hospitalization at [facility] Increased abdominal, Upper and Lower extremity Edema: - Unknown etiology - Cardiology Eval - Imaging Chest further evaluation Increased Liver Transminitis: Thrombocytopenia: - Unknown baseline, prior smear Giant PLatelets. - Thrombocytopenia Evaluation PLan: - Imaging to assess Chest/Abd/Pelvis, further focus new bilateral UE Edema, evaluate Liver and Spleen - Anemia and thrombocytopenia Evaluation - Monitor Daily CBC and CMP - Obtain diagnostics from recent hospital stay Physician Attest: I have completed the full history and physical and devloped the above impression and plan, agree with dictation, dictated as a scribe
--- NOTE | 2018-09-25 17:24 | CT ---
EXAMINATION TYPE: CT ChestAbdPelvis w con DATE OF EXAM: 09/25/2018 COMPARISON: HISTORY: GI bleed, limb swelling CT DLP: 2841.6 mGycm Automated exposure control for dose reduction was used. CONTRAST: CT scan of the chest, abdomen and pelvis is performed without Oral Contrast and with IV Contrast, pat ient injected with 80 mL of Isovue 300. FINDINGS: There is moderate right pleural effusion. There is small left pleural effusion. Heart is enlarged. Th ere is no mediastinal adenopathy. There are no hilar masses. There is airspace consolidation and atel ectasis right lower lobe. There is interstitial infiltrate in the left lung. Liver shows no focal defect. Spleen appears normal. There is no pancreatic mass. Bile ducts are not d ilated. Gallbladder is absent. There is no adrenal mass. Kidneys show satisfactory contrast opacification. There is no hydronephrosi s. There is no retroperitoneal adenopathy. Bladder distends smoothly. There is some cystic enlargemen t of the endometrial cavity and the lower uterine segment. The lower uterine segment fluid could be a large cervical cyst that measures 2.6 cm. There is no inguinal hernia. There is mild free fluid in the pelvis. There is some fluid in the parac olic gutters. There is no sign of a bowel obstruction. There is no sign of free air. There is diffuse subcutaneous edema around the chest abdomen pelvis. Thoracic and lumbar spine appear intact. I see no bony destructive process. IMPRESSION: Diffuse subcutaneous edema could relate to anasarca or congestive heart failure. Large right pleural effusion and small left pleural effusion. Cardiomegaly. This is consistent with c ongestive heart failure. Right lower lobe consolidation and atelectasis. Mild ascites. Mild enlargement of the endometrial cavity with fluid. Large cervical cyst or cystic en largement of the lower uterine segment..
--- NOTE | 2018-09-25 18:07 | P.CONS ---
History of Present Illness - Reason for Consult Consult date: 09/25/18 Blood per rectum Requesting physician: Ricky Lyle - Chief Complaint Blood per rectum - History of Present Illness 83-year-old female with a medical history significant for GERD and hyperlipidemia and recent admission for urinary tract infection who presents with complaints of bright red blood in the toilet and with wiping. The patient was recently hospitalized and treated for a urinary tract infection after which she was discharged to a rehabilitation facility after which she went home. She presents with painless bright red blood per rectum. The patient denies any prior history of rectal bleeding, excessive NSAID use or anticoagulation. She reports a remote history of colonoscopy and EGD approximately 10 years ago but is unsure of the findings of that time. She denies any nausea, vomiting or hematemesis. The patient had stool testing in the ER which was positive for occult blood. She also had vaginal exam with no signs of bleeding noted. Patient's hemoglobin has been stable since admission with serial hemoglobins significant for findings of 11.3, looking 0.2, temperature 6 and most recently 10.9. INR 1.3. The patient has also recently noted on outpatient labs to have elevation in her liver enzymes and was scheduled for follow[facility]. She denies any prior history of liver disease or elevation in her liver enzymes. The patient also has complaints of worsening edema in the upper and lower extremities. Review of Systems REVIEW OF SYSTEMS: CONSTITUTIONAL: Denies any fevers, chills, weight change or fatigue. CARDIOVASCULAR: Denies any chest pain, palpitations high or low blood pressures RESPIRATORY: Denies any shortness of breath, hemoptysis or cough. GENITOURINARY: No dysuria or hematuria. MUSCULOSKELETAL: No weakness reported. SKIN: Denies any new rashes or lesions, jaundice or pallor. PSYCHIATRIC: Denies any depression or anxiety. NEUROLOGY: Denies headache, denies any new focal deficits. EARS/NOSE/THROAT: No recent hearing change, congestion, nasal discharge or sore throat. EYES: No pain in eyes, discharge or change in vision. GASTROINTESTINAL: As per HPI. Past Medical History Past Medical History: GERD/Reflux, Hyperlipidemia, Osteoarthritis (OA) Additional Past Medical History / Comment(s): lymphedema, UTI History of Any Multi-Drug Resistant Organisms: None Reported Past Surgical History: Appendectomy, Cholecystectomy, Orthopedic Surgery Additional Past Surgical History / Comment(s): right total knee Past Psychological History: No Psychological Hx Reported Smoking Status: Never smoker Past Alcohol Use History: None Reported Past Drug Use History: None Reported - Past Family History Mother History Unknown: Yes Father History Unknown: Yes Brother(s) Family Medical History: Dementia Daughter(s) Family Medical History: Thyroid Disorder Medications and Allergies Home Medications Medication Instructions Recorded Confirmed Type Albuterol Inhaler [Ventolin Hfa 2 puff INHALATION RT-BID 09/24/18 09/24/18 History Inhaler] Aspirin [[place] Aspirin EC] 81 mg PO DAILY 09/24/18 09/24/18 History Ferrous Sulfate [Iron] 325 mg PO DAILY 09/24/18 09/24/18 History Omeprazole 20 mg PO BID 09/24/18 09/24/18 History Potassium Chloride ER [K-Dur 10] 10 meq PO DAILY 09/24/18 09/24/18 History Spironolactone [Aldactone] 25 mg PO BID 09/24/18 09/24/18 History Vit D 50mcg 50 mcg PO DAILY 09/24/18 09/24/18 History Allergies Allergy/AdvReac Type Severity Reaction Status Date / Time No Known Allergies Allergy Verified 09/24/18 10:59 Physical Exam Vitals: Vital Signs Temp Pulse Pulse Resp BP BP Pulse Ox 09/25/18 09:10 96.6 F L 85 18 100/65 94 L 09/25/18 04:00 97 F L 74 16 106/68 97 09/25/18 00:00 97 F L 74 16 106/68 96 09/24/18 23:43 74 09/24/18 23:33 74 09/24/18 20:00 97 F L 76 16 129/77 95 09/24/18 15:12 65 18 112/69 09/24/18 13:50 96.9 F L 09/24/18 13:25 71 18 105/75 97 09/24/18 12:00 79 18 109/65 96 Intake and Output 09/24/18 09/25/18 09/25/18 22:59 06:59 14:59 Intake Total 360 360 Output Total 200 Balance 360 -200 360 Intake: Oral 360 360 Output: Urine 200 Other: # Voids 1 1 Weight 125.6 kg On physical examination, patient appears comfortable in no apparent distress. HEAD: Normocephalic, atraumatic. EYES: No scleral icterus. No conjunctival injection. MOUTH: No lesions, tongue midline. NECK: Trachea midline, no gross abnormalities. CHEST: Decreased air entry in all lung carmichael no wheezing or rhonchi appreciated. HEART: Regular rate and rhythm. ABDOMEN: Soft, obese. Bowel sounds are positive. No organomegaly. No guarding or rigidity. EXTREMITIES: Bilateral upper and lower extremity pitting edema. SKIN: No rashes, no jaundice. NEUROLOGIC: Alert and oriented x3. No focal deficits. Results CBC & Chem 7: 09/25/18 12:03 09/25/18 06:17 Labs: Abnormal Lab Results - Last 24 Hours (Table) 09/24/18 09/24/18 09/24/18 Range/Units 10:50 10:50 10:50 RBC 3.55 L (3.80-5.40) m/uL Hgb 11.3 L (11.4-16.0) gm/dL Hct (34.0-46.0) % MCV 101.8 H (80.0-100.0) fL RDW 16.5 H (11.5-15.5) % Plt Count 50 L (150-450) k/uL Lymphocytes # 0.7 L (1.0-4.8) k/uL Lymphocytes # (Manual) (1.0-4.8) k/uL Nucleated RBCs (0-0) /100 WBC PT 12.8 H (9.0-12.0) sec INR 1.2 H (<1.2) APTT (22.0-30.0) sec Potassium 5.4 H (3.5-5.1) mmol/L BUN 25 H (7-17) mg/dL Glucose (74-99) mg/dL Total Bilirubin 2.3 H (0.2-1.3) mg/dL AST 100 H (14-36) U/L ALT 65 H (9-52) U/L Alkaline Phosphatase 289 H (38-126) U/L Total Protein 5.4 L (6.3-8.2) g/dL Albumin 2.8 L (3.5-5.0) g/dL Urine Appearance (Clear) Urine RBC (0-5) /hpf Urine WBC (0-5) /hpf Stool Occult Blood (Negative) 09/24/18 09/24/18 09/24/18 Range/Units 11:42 11:42 15:28 RBC 3.50 L (3.80-5.40) m/uL Hgb 11.2 L (11.4-16.0) gm/dL Hct (34.0-46.0) % MCV 101.7 H (80.0-100.0) fL RDW 16.5 H (11.5-15.5) % Plt Count 43 L (150-450) k/uL Lymphocytes # (1.0-4.8) k/uL Lymphocytes # (Manual) (1.0-4.8) k/uL Nucleated RBCs (0-0) /100 WBC PT (9.0-12.0) sec INR (<1.2) APTT (22.0-30.0) sec Potassium (3.5-5.1) mmol/L BUN (7-17) mg/dL Glucose (74-99) mg/dL Total Bilirubin (0.2-1.3) mg/dL AST (14-36) U/L ALT (9-52) U/L Alkaline Phosphatase (38-126) U/L Total Protein (6.3-8.2) g/dL Albumin (3.5-5.0) g/dL Urine Appearance Bloody H (Clear) Urine RBC >182 H (0-5) /hpf Urine WBC 72 H (0-5) /hpf Stool Occult Blood Positive H (Negative) 09/25/18 09/25/18 09/25/18 Range/Units 00:39 06:17 06:17 RBC 3.24 L 3.32 L (3.80-5.40) m/uL Hgb 10.6 L 10.9 L (11.4-16.0) gm/dL Hct 32.4 L 33.8 L (34.0-46.0) % MCV 101.7 H (80.0-100.0) fL RDW 17.8 H 18.0 H (11.5-15.5) % Plt Count 45 L 60 L (150-450) k/uL Lymphocytes # (1.0-4.8) k/uL Lymphocytes # (Manual) 0.70 L (1.0-4.8) k/uL Nucleated RBCs 1 H (0-0) /100 WBC PT (9.0-12.0) sec INR (<1.2) APTT (22.0-30.0) sec Potassium (3.5-5.1) mmol/L BUN 28 H (7-17) mg/dL Glucose 62 L (74-99) mg/dL Total Bilirubin 1.9 H (0.2-1.3) mg/dL AST 77 H (14-36) U/L ALT 64 H (9-52) U/L Alkaline Phosphatase 244 H (38-126) U/L Total Protein 4.9 L (6.3-8.2) g/dL Albumin 2.5 L (3.5-5.0) g/dL Urine Appearance (Clear) Urine RBC (0-5) /hpf Urine WBC (0-5) /hpf Stool Occult Blood (Negative) 09/25/18 Range/Units 06:17 RBC (3.80-5.40) m/uL Hgb (11.4-16.0) gm/dL Hct (34.0-46.0) % MCV (80.0-100.0) fL RDW (11.5-15.5) % Plt Count (150-450) k/uL Lymphocytes # (1.0-4.8) k/uL Lymphocytes # (Manual) (1.0-4.8) k/uL Nucleated RBCs (0-0) /100 WBC PT 13.6 H (9.0-12.0) sec INR 1.3 H (<1.2) APTT 31.2 H (22.0-30.0) sec Potassium (3.5-5.1) mmol/L BUN (7-17) mg/dL Glucose (74-99) mg/dL Total Bilirubin (0.2-1.3) mg/dL AST (14-36) U/L ALT (9-52) U/L Alkaline Phosphatase (38-126) U/L Total Protein (6.3-8.2) g/dL Albumin (3.5-5.0) g/dL Urine Appearance (Clear) Urine RBC (0-5) /hpf Urine WBC (0-5) /hpf Stool Occult Blood (Negative) Microbiology - Last 24 Hours (Table) 09/24/18 11:42 Urine Culture - Preliminary Urine,Voided Assessment and Plan (1) GI bleeding Narrative/Plan: Patient presenting with complaints of painless bright red blood per rectum with stable hemoglobin found to be 11.3 on admission and 10.9 today after repeated blood draws. Differential is broad and includes hemorrhoidal bleeding, diverticular bleed, AVMs, malignancy or other etiology. Current Visit: Yes Status: Acute Code(s): K92.2 - GASTROINTESTINAL HEMORRHAGE, UNSPECIFIED SNOMED Code(s): 26197542 (2) Elevated liver enzymes Narrative/Plan: Elevation in liver enzymes in both a cholestatic and hepatocellular pattern of unknown etiology differential includes drug-induced liver injury the setting of recent antibiotics for urinary tract infection, infectious etiology, biliary etiology or other source of elevation. Current Visit: Yes Status: Acute Code(s): R74.8 - ABNORMAL LEVELS OF OTHER SERUM ENZYMES SNOMED Code(s): 465488330 (3) Normocytic anemia Narrative/Plan: Likely with a component of GI bleeding with the patient complaining of bright red blood on presentation from rectum, however patient will need further evaluation given associated thrombocytopenia to rule out underlying bone marrow pathology, nutritional deficiencies or other etiology. Current Visit: Yes Status: Acute Code(s): D64.9 - ANEMIA, UNSPECIFIED SNOMED Code(s): 265823468 Plan: Supportive care Okay for diet Continue to monitor hemoglobin and hematocrit and transfuse as needed Continue to monitor liver enzymes Will order full liver serology Will order ultrasound of the abdomen to rule out ductal dilation or other biliary abnormalities Appreciate recommendations from hematology Plan from hematology is for evaluation with computed tomography scan of the chest/abdomen and pelvis, await findings from this study No plans for endoscopic evaluation at this time, we'll decide on further evaluation pending results of workup Thank you for allowing us to participate in the care of the patient we will continue to follow
[2018-09-25] MEDS: ALBUTEROL NEBULIZED 2.5 MG/3 ML INHALATION PRN (18:38)
[2018-09-26 00:27] LABS: Anisocytosis Slight; HCT 30.1 % (34.0-46.0); HGB 9.9 gm/dL (11.4-16.0); Hypochromasia Slight; MCH 32.4 pg (25.0-35.0); MCHC 32.9 g/dL (31.0-37.0); MCV 98.6 fL (80.0-100.0); Macrocytosis Slight; Mean Platelet Volume 9.1; RBC 3.06 m/uL (3.80-5.40); RDW 16.5 % (11.5-15.5); WBC 4.2 k/uL (3.8-10.6)
[2018-09-26 00:35] LABS: Platelet Count 56 k/uL (150-450)
[2018-09-26] MEDS ORDERED: HYDROcodone/APAP 5-325MG 1 EACH TAB PO PRN (04:43)
[2018-09-26] MEDS: ACETAMINOPHEN TAB 325 MG TAB PO PRN ×2 (05:05→23:29)
[2018-09-26] MEDS: ALBUTEROL NEBULIZED 2.5 MG/3 ML INHALATION PRN (05:47)
[2018-09-26] MEDS: PANTOPRAZOLE 40 MG TABLET PO SCH ×2 (06:14→17:50)
[2018-09-26 06:47] LABS: Anisocytosis Slight; HCT 32.4 % (34.0-46.0); HGB 10.3 gm/dL (11.4-16.0); Hypochromasia Slight; MCH 31.5 pg (25.0-35.0); MCHC 31.7 g/dL (31.0-37.0); MCV 99.2 fL (80.0-100.0); Macrocytosis Slight; Mean Platelet Volume 9.7; RBC 3.26 m/uL (3.80-5.40); RDW 16.7 % (11.5-15.5); Reticulocyte % 2.7 % (0.5-2.0); WBC 4.1 k/uL (3.8-10.6)
[2018-09-26 06:53] LABS: Platelet Count 69 k/uL (150-450)
[2018-09-26 06:56] LABS: INR 1.3 (<1.2); Prothrombin Time 13.6 sec (9.0-12.0)
[2018-09-26 07:01] LABS: Albumin 2.4 g/dL (3.5-5.0); Bilirubin, Delta 0.5 mg/dL (0.0-0.2); Bilirubin,Unconjugated 1.4 mg/dL (0.0-1.1); Calcium 9.3 mg/dL (8.4-10.2); Potassium 4.9 mmol/L (3.5-5.1); Total Bilirubin 1.9 mg/dL (0.2-1.3); Total Protein 4.9 g/dL (6.3-8.2)
[2018-09-26] MEDS: TRIAMCINOLONE ACET 0.1% OINTMENT 15 GM TUBE TOPICAL SCH ×4 (10:10→23:29)
[2018-09-26] MEDS: NYSTATIN 100,000 UNIT/GM OINT 30 GM TUBE TOPICAL SCH ×4 (10:10→23:29)
--- NOTE | 2018-09-26 11:21 | P.CON ---
Consult Note - . Consult date: 09/26/18 Assessment/Plan:: This is an 83-year-old white female 4 para 4003 last menstrual period many years ago. Patient was admitted to the hospital 2 days ago with a history of bright red bleeding. This was noted by her daughter, it did not contain cl ots. Patient denied any abdominal pain. It was felt that this was rectal bleeding, hemoglobin was low on admission along with a platelet count of 43,000, and the patient was admitted for further workup. At this time she has no problems or complaints. She denies any further bleeding. I was asked to evaluate the patient to rule out vaginal source of this bleeding. Past medical history is essentially significant for chronic lymphedema. Past surgical history appendectomy, cholecystectomy, left knee replacement. Home medications Prilosec 20 mg daily, potassium 10 mEq daily, spironolactone 25 mg twice daily, baby aspirin daily, vitamin D3 daily. ALLERGIES none known. Family history is negative for cancers of the breasts cervix: Uterus or cervix. Mother at age 95 and father at age 99 both of "old age". Social history patient lives in her own home by herself in [place]. She has never been a smoker. She denies alcohol or drug use. She has been for many years. On exam she is 5 foot 5 inches, 87.7 kg, blood pressure 100/59, pulse 89, respirations 18, 97% O2 saturation on room air. HEENT examination reveals dentures on the upper plate, good lower dentition. No thyromegaly. No obvious cervical lymphadenopathy. Breast exam is performed, breasts are bilaterally symmetric to inspection with no skin dimpling, nipple discharge, axillary adenopathy or discernible lesions or masses. Chest reveals diminished breath sounds bilateral lower carmichael. Cardiac exam reveals a grade 3/6 holosystolic murmur, no clicks or rubs. Abdomen is obese, there is cellulitis noted in the abdominal wall and redness noted in the crease of the pannus across the lower abdomen. There is no obvious organosplenomegaly. Active bowel sounds. No CVA tenderness. Lower extremities reveal 3+ edema, there is pitting noted as well. Decreased peripheral pulses. On pelvic exam external genitalia appears clean and dry. Bimanual examination reveals a small firm cervix, no obvious masses, no bleeding noted vaginally. Rectal exam reveals internal and external hemorrhoids, there is black tarry stool noted on my glove consistent with blood in the stool. There is no pain to examination. Labs include multiple abnormalities including hemoglobin 10.3, platelets 69,000, several electrolyte disturbances. These are all being addressed medically. Pelvic ultrasound has been ordered but has not yet been read by the staff. Impression: 83-year-old female with bright red vaginal bleeding and evidence of positive blood on the stool specimen today. There is no evidence of vaginal b leeding on exam today. Oncology team is following. Plan: I will follow up on the pelvic ultrasound and render any other suggestions as appropriate. Thank you for the consultation.
--- NOTE | 2018-09-26 11:34 | US ---
EXAMINATION TYPE: US abdomen complete DATE OF EXAM: 09/26/2018 COMPARISON: NONE CLINICAL HISTORY: 83-year-old female Elevated liver enzymes. Cholecystectomy TECHNIQUE: Multiple sonographic images of the abdomen are obtained. FINDINGS: EXAM MEASUREMENTS: Liver Length: 14.5 cm Gallbladder: Surgically absent CBD: 0.5 cm Spleen: 11.6 cm Right Kidney: 9.0 x 4.2 x 5.0 cm Left Kidney: 8.7 x 4.4 x 4.2 cm Electrical Instrumentation Technician notes:Technical limitations due to large amount of overlying bowel content Pancreas: Obscured by bowel gas Liver: visualized portions appear slightly heterogeneous. There is contour nodularity noted. No foca l lesion identified. Gallbladder: Surgically absent Evidence for sonographic Turner's sign: no CBD: limited evaluation. The visualized portion is normal caliber. Spleen: appears wnl Right Kidney: no evidence of hydronephrosis Left Kidney: no evidence of hydronephrosis Upper IVC: appears wnl Abd Aorta: Obscured by overlying bowel gas Mild upper abdominal ascites Right pleural effusion IMPRESSION: 1. Technical limitation as above. 2. Cirrhotic morphology of the liver. Clinically correlate. 3. Mild upper abdominal ascites. Right pleural effusion. Correlate for fluid overload state.
[2018-09-26 11:40] LABS: Protein, Total 4.7 g/dL (6.2-8.2)
--- NOTE | 2018-09-26 11:41 | US ---
EXAMINATION TYPE: US pelvic complete DATE OF EXAM: 09/26/2018 COMPARISON: CT 09/25/2018 CLINICAL HISTORY: A 3-year-old female follow up CT scan. Cystic areas visualized on recent CT exam - cervical and endometrial. 55 years ago TECHNIQUE: Transabdominal (TA). Date of LMP: unknown FINDINGS: EXAM MEASUREMENTS: Uterus: 9.7 x 4.5 x 5.0 cm Endometrial Stripe: 0.7 cm Right Ovary: unable to visualize Left Ovary: unable to visualize Technical limitations due to overlying bowel content and patient very tender - patient denied trans vaginal exam at this time 1. Uterus: Anteverted. Probable cervical cystic area = 3.4 x 3.2 x 3.0cm 2. Endometrium: limited evaluation 3. Right Ovary: Obscured by overlying bowel gas 4. Left Ovary: Obscured by overlying bowel gas 5. Bilateral Adnexa: ascites noted 6. Posterior cul-de-sac: appears wnl IMPRESSION: 1. Pelvic ascites. Correlate for portal venous hypertension as the etiology for the free fluid given findings on ultrasound of the abdomen. 2. In the medial stripe measures 7 mm which is borderline to mildly thickened. 3. Technically limited exam. This suggestively 3.4 cm rounded area in the region of the cervix/lower uterine segment. Through-transmission is present. A large cervical nabothian cyst is possible. 4. Neither ovary could be visualized.
[2018-09-26 12:00] LABS: Folate, Serum 9.4 ng/mL
[2018-09-26 12:43] LABS: Hepatitis A Antibody IgM Non-Reactive (Non-Reactive); Hepatitis B Core IgM Non-Reactive (Non-Reactive)
[2018-09-26 12:44] LABS: Iron Saturation 57.34 (12.00-45.00)
--- NOTE | 2018-09-26 12:48 | P.PN ---
Subjective Progress Note Date: 09/26/18 Principal diagnosis: Elevated liver enzymes, Blood per rectum Patient seen lying in bed. No further blood per rectum. She has tolerated her diet. Objective - Vital Signs Vital signs: Vital Signs Temp 97 F L 09/26/18 04:00 Pulse 89 09/26/18 08:39 Resp 18 09/26/18 08:39 BP 100/59 09/26/18 08:39 Pulse Ox 97 09/26/18 08:39 Intake & Output 09/25/18 09/26/18 09/26/18 18:59 06:59 18:59 Intake Total 600 Output Total 100 Balance 500 Weight 87.7 kg Intake: Oral 600 Output: Urine 100 Other: # Voids 1 1 # Bowel Movements 1 1 - Exam On physical examination, patient appears comfortable in no apparent distress. HEAD: Normocephalic, atraumatic. EYES: No scleral icterus. No conjunctival injection. MOUTH: No lesions, tongue midline. NECK: Trachea midline, no gross abnormalities. CHEST: Clear to auscultation with no wheezing or rhonchi appreciated. HEART: S1-S2 appreciated. ABDOMEN: Soft, obese. Bowel sounds are positive. No organomegaly. No guarding or rigidity. EXTREMITIES: No pedal edema. SKIN: No rashes, no jaundice. NEUROLOGIC: Alert and oriented No focal deficits. - Labs CBC & Chem 7: 09/26/18 05:53 09/26/18 05:53 Labs: Abnormal Lab Results - Last 24 Hours (Table) 09/25/18 09/25/18 09/25/18 Range/Units 12:03 12:03 12:03 RBC 3.30 L (3.80-5.40) m/uL Hgb 10.6 L (11.4-16.0) gm/dL Hct 32.6 L (34.0-46.0) % RDW 17.6 H (11.5-15.5) % Plt Count 54 L (150-450) k/uL Lymphocytes # 0.5 L (1.0-4.8) k/uL Retic Count 2.7 H (0.5-2.0) % PT (9.0-12.0) sec INR (<1.2) Fibrinogen 130 L (200-500) mg/dL D-Dimer 1.28 H (<0.60) mg/L FEU BUN (7-17) mg/dL Creatinine (0.52-1.04) mg/dL Glucose (74-99) mg/dL Total Bilirubin (0.2-1.3) mg/dL Unconjugated Bilirubin (0.0-1.1) mg/dL Delta Bilirubin (0.0-0.2) mg/dL AST (14-36) U/L ALT (9-52) U/L Alkaline Phosphatase (38-126) U/L Lactate Dehydrogenase (313-618) U/L Total Protein (6.3-8.2) g/dL Albumin (3.5-5.0) g/dL 09/25/18 09/26/18 09/26/18 Range/Units 12:03 00:03 05:53 RBC 3.06 L 3.26 L (3.80-5.40) m/uL Hgb 9.9 L 10.3 L (11.4-16.0) gm/dL Hct 30.1 L 32.4 L (34.0-46.0) % RDW 16.5 H 16.7 H (11.5-15.5) % Plt Count 56 L 69 L (150-450) k/uL Lymphocytes # (1.0-4.8) k/uL Retic Count 2.7 H (0.5-2.0) % PT (9.0-12.0) sec INR (<1.2) Fibrinogen (200-500) mg/dL D-Dimer (<0.60) mg/L FEU BUN (7-17) mg/dL Creatinine (0.52-1.04) mg/dL Glucose (74-99) mg/dL Total Bilirubin (0.2-1.3) mg/dL Unconjugated Bilirubin (0.0-1.1) mg/dL Delta Bilirubin (0.0-0.2) mg/dL AST (14-36) U/L ALT (9-52) U/L Alkaline Phosphatase (38-126) U/L Lactate Dehydrogenase 697 H (313-618) U/L Total Protein (6.3-8.2) g/dL Albumin (3.5-5.0) g/dL 09/26/18 09/26/18 Range/Units 05:53 05:53 RBC (3.80-5.40) m/uL Hgb (11.4-16.0) gm/dL Hct (34.0-46.0) % RDW (11.5-15.5) % Plt Count (150-450) k/uL Lymphocytes # (1.0-4.8) k/uL Retic Count (0.5-2.0) % PT 13.6 H (9.0-12.0) sec INR 1.3 H (<1.2) Fibrinogen (200-500) mg/dL D-Dimer (<0.60) mg/L FEU BUN 29 H (7-17) mg/dL Creatinine 1.09 H (0.52-1.04) mg/dL Glucose 63 L (74-99) mg/dL Total Bilirubin 1.9 H (0.2-1.3) mg/dL Unconjugated Bilirubin 1.4 H (0.0-1.1) mg/dL Delta Bilirubin 0.5 H (0.0-0.2) mg/dL AST 70 H (14-36) U/L ALT 65 H (9-52) U/L Alkaline Phosphatase 219 H (38-126) U/L Lactate Dehydrogenase (313-618) U/L Total Protein 4.9 L (6.3-8.2) g/dL Albumin 2.4 L (3.5-5.0) g/dL Microbiology - Last 24 Hours (Table) 09/24/18 11:42 Urine Culture - Final Urine,Voided Assessment and Plan (1) GI bleeding Narrative/Plan: Patient presenting with complaints of painless bright red blood per rectum with stable hemoglobin found to be 11.3 on admission and 10.9 today after repeated blood draws. Differential is broad and includes hemorrhoidal bleeding, diverticular bleed, AVMs, malignancy or other etiology. Current Visit: Yes Status: Acute Code(s): K92.2 - GASTROINTESTINAL HEMORRHAGE, UNSPECIFIED SNOMED Code(s): 68101752 (2) Elevated liver enzymes Narrative/Plan: Elevation in liver enzymes in both a cholestatic and hepatocellular pattern of unknown etiology differential includes drug-induced liver injury the setting of recent antibiotics for urinary tract infection, infectious etiology, biliary etiology or other source of elevation. Current Visit: Yes Status: Acute Code(s): R74.8 - ABNORMAL LEVELS OF OTHER SERUM ENZYMES SNOMED Code(s): 566198300 (3) Normocytic anemia Narrative/Plan: Likely with a component of GI bleeding with the patient complaining of bright red blood on presentation from rectum, however patient will need further evaluation given associated thrombocytopenia to rule out underlying bone marrow pathology, nutritional deficiencies or other etiology. Current Visit: Yes Status: Acute Code(s): D64.9 - ANEMIA, UNSPECIFIED SNOMED Code(s): 707292899 Plan: Supportive care Okay for diet Continue to monitor hemoglobin and hematocrit and transfuse as needed Continue to monitor liver enzymes Full serology has been ordered and is pending Abnormalities on ultrasound, however liver did appear cirrhotic Appreciate recommendations from hematology No findings on computed tomography scan of the chest, abdomen and pelvis to exp heaven anemia Plan for EGD and colonoscopy tomorrow for further evaluation Thank you for allowing us to participate in the care of the patient we will continue to follow
[2018-09-26 12:50] LABS: Haptoglobin <8.0 mg/dL (31.2-198.0)
[2018-09-26 12:58] LABS: Alpha Fetoprotein, Tumor Mkr <2.5 ng/mL (0.0-7.9)
[2018-09-26 13:02] LABS: Alpha 1 Antitrypsin 93.2 mg/dL (99.0-242.0)
[2018-09-26 13:34] LABS: Albumin 2.51 g/dL (3.80-4.90); Gamma Globulin 0.87 g/dL (0.70-1.50)
--- NOTE | 2018-09-26 13:57 | P.PN ---
Subjective Progress Note Date: 09/26/18 Principal diagnosis: BIcytopenia CT scans were reviewed and reveals diffuse subcutaneous edema, related to anasarca versus edema. Uterine Cyst-like area in which further work-up with pelvic ultrasound and PUMP SERVIC[employer] SUPERVISOR consultation was completed. CBC is stable, Platlets mild improvement, not worsening. Awaiting completion of anemia work-up. Objective - Vital Signs Vital signs: Vital Signs Temp 97 F L 09/26/18 04:00 Pulse 82 09/26/18 11:30 Resp 18 09/26/18 11:30 BP 91/42 09/26/18 11:30 Pulse Ox 97 09/26/18 11:30 Intake & Output 09/25/18 09/26/18 09/26/18 18:59 06:59 18:59 Intake Total 600 240 Output Total 100 Balance 500 240 Weight 87.7 kg 128.6 kg Intake: Oral 600 240 Output: Urine 100 Other: # Voids 1 1 # Bowel Movements 1 1 - Exam Gen: NAD, Alert and oriented. Head: NC, NT No Cervical, Supraclavicular, or axillary adenopathy Neck is supple Lungs: Diminished, No increased effort Heart: RRR, S1s2 Abdomen: Obese, Non-tender, Non Distended, Ascites Extremities BLE Edema, New Bilateral Upper extremity edema Neuro: No sensory or motor deficits. - Labs CBC & Chem 7: 09/28/18 03:00 09/28/18 03:00 Labs: Abnormal Lab Results - Last 24 Hours (Table) 09/25/18 09/26/18 09/26/18 Range/Units 12:03 00:03 05:53 RBC 3.06 L 3.26 L (3.80-5.40) m/uL Hgb 9.9 L 10.3 L (11.4-16.0) gm/dL Hct 30.1 L 32.4 L (34.0-46.0) % RDW 16.5 H 16.7 H (11.5-15.5) % Plt Count 56 L 69 L (150-450) k/uL Retic Count 2.7 H (0.5-2.0) % Haptoglobin <8.0 L (31.2-198.0) mg/dL PT (9.0-12.0) sec INR (<1.2) BUN (7-17) mg/dL Creatinine (0.52-1.04) mg/dL Glucose (74-99) mg/dL Iron Saturation (12.00-45.00) Total Bilirubin (0.2-1.3) mg/dL Unconjugated Bilirubin (0.0-1.1) mg/dL Delta Bilirubin (0.0-0.2) mg/dL AST (14-36) U/L ALT (9-52) U/L Alkaline Phosphatase (38-126) U/L Total Protein (6.3-8.2) g/dL Total Protein (PEP) 4.7 L (6.2-8.2) g/dL Albumin (3.5-5.0) g/dL Albumin (PEP) 2.51 L (3.80-4.90) g/dL Cztak-6-Bjeqdvfle 0.49 L (0.60-1.00) g/dL Ujvit-1-Corqsyfkvkl (99.0-242.0) mg/dL Free [place] LC, Quant 6.48 H (0.33-1.94) mg/dL 09/26/18 09/26/18 09/26/18 Range/Units 05:53 05:53 05:53 RBC (3.80-5.40) m/uL Hgb (11.4-16.0) gm/dL Hct (34.0-46.0) % RDW (11.5-15.5) % Plt Count (150-450) k/uL Retic Count (0.5-2.0) % Haptoglobin (31.2-198.0) mg/dL PT 13.6 H (9.0-12.0) sec INR 1.3 H (<1.2) BUN 29 H (7-17) mg/dL Creatinine 1.09 H (0.52-1.04) mg/dL Glucose 63 L (74-99) mg/dL Iron Saturation 57.34 H (12.00-45.00) Total Bilirubin 1.9 H (0.2-1.3) mg/dL Unconjugated Bilirubin 1.4 H (0.0-1.1) mg/dL Delta Bilirubin 0.5 H (0.0-0.2) mg/dL AST 70 H (14-36) U/L ALT 65 H (9-52) U/L Alkaline Phosphatase 219 H (38-126) U/L Total Protein 4.9 L (6.3-8.2) g/dL Total Protein (PEP) (6.2-8.2) g/dL Albumin 2.4 L (3.5-5.0) g/dL Albumin (PEP) (3.80-4.90) g/dL Lmpiw-3-Uiplchtdn (0.60-1.00) g/dL Jsmha-2-Moqiwyooggd 93.2 L (99.0-242.0) mg/dL Free [place] LC, Quant (0.33-1.94) mg/dL Microbiology - Last 24 Hours (Table) 09/24/18 11:42 Urine Culture - Final Urine,Voided Assessment and Plan (1) Normocytic anemia Current Visit: Yes Status: Acute Code(s): D64.9 - ANEMIA, UNSPECIFIED SNOMED Code(s): 771086325 (2) GI bleeding Current Visit: Yes Status: Acute Code(s): K92.2 - GASTROINTESTINAL HEMORRHAGE, UNSPECIFIED SNOMED Code(s): 75892885 (3) Thrombocytopenia Current Visit: Yes Status: Acute Code(s): D69.6 - THROMBOCYTOPENIA, UNSPECIFIED SNOMED Code(s): 337737310 (4) Transaminitis Current Visit: Yes Status: Acute Code(s): R74.0 - NONSPEC ELEV OF LEVELS OF TRANSAMNS & LACTIC ACID DEHYDRGNSE SNOMED Code(s): 084330172 (5) Urinary tract infection Current Visit: Yes Status: Acute Code(s): N39.0 - URINARY TRACT INFECTION, SITE NOT SPECIFIED SNOMED Code(s): 83579287 Plan: Assessment and Recommendations: Normocytic Anemia: Secondary to acute GI Blood Loss Anemia - Further Anemia work-up ordered - Full GI Evaluation Recommended - Await B12, Immunofixation as a monoclonal protein could not be ruled out. UTI: - In August at [facility] Cultures Positive Citrobacter Younge and Fatoumata - Requiring Prolonged Hospitalization at [facility] Increased abdominal, Upper and Lower extremity Edema: - Unknown etiology - Cardiology Eval - Imaging Chest further evaluation Increased Liver Transminitis: - Ultrasound of liver reviewed no spleen or liver abnormalities noted - GI has been consulted and are following Thrombocytopenia: - Unknown baseline, prior smear Giant PLatelets. - Thrombocytopenia Evaluation - Likely related to bone marrow suppression from recent prolonged infection and antibiotics - Component oif ITP - Platlet count greater than 50K, no intervention - COmponent of underlying liver disease? GI Following, counts stable continue to monitor. PLan: -Await completion of Anemia work-up - Diffuse edema, nutitional versus cardiac in nature. Defer to primary team - Uterine cysts - PU[employer] SERVIC[employer] SUPERVISOR is following - Acute bleeding has appeared to resolve. - Daily CBC. GI is following. - Reviewed ultrasound Physician Attest: I have completed the full history and physical and devloped the above impression and plan, agree with dictation, dictated as a scribe
[2018-09-26] MEDS ORDERED: PEG 3350-NA SULF,BICARB,CL/KCL 4,000 ML BOTTLE PO ONE (16:00)
[2018-09-26] MEDS ORDERED: BISACODYL 5 MG TABLET.DR PO ONE (17:00)
[2018-09-26] MEDS: FUROSEMIDE 10 MG/ML 4 ML VIAL IV SCH ×2 (17:51→20:54)
[2018-09-26 18:01] LABS: Appearance,Urine Cloudy (Clear); Bilirubin,Urine Negative (Negative); Blood,Urine Moderate (Negative); Color,Urine Yellow; Glucose,Urine (UA) Negative (Negative); Ketones,Urine Negative (Negative); Leukocyte Esterase,Urine Moderate (Negative); Mucus,Urine Occasional /hpf; Nitrite,Urine Negative (Negative); Protein,Urine Trace (Negative); RBC,Urine 5 /hpf (0-5); Specific Gravity,Urine 1.039 (1.001-1.035); Squamous Epithelial Cell,Urine 17 /hpf (0-4)
[2018-09-26] MEDS ORDERED: LACTATED RINGERS 1,000 ML IV SCH (20:45)
[2018-09-26] MEDS: ENOXAPARIN 40 MG/0.4 ML SYRINGE SQ SCH (21:33)
--- NOTE | 2018-09-26 22:35 | PN ---
PROGRESS NOTE DATE OF SERVICE: September 26, 2018. PRESENTING COMPLAINT: Bright red blood per rectum. INTERVAL HISTORY: Patient admitted with bright red blood per rectum. The patient was seen by GI. Patient doing EGD, colonoscopy, not felt to be bleed. The patient's daughter at the bedside. REVIEW OF SYSTEMS: Done for constitutional, cardiovascular, GI, pulmonary and relevant findings as above. The patient has got a increased swelling of lower extremity. He has chronic lymphedema. MEDICATIONS: Current medications reviewed that include Ventolin, [place], Protonix. PHYSICAL EXAMINATION: VITAL SIGNS: Temperature 96.4, pulse 84, respiratory 18, blood pressure 117/61, pulse ox 97% on room air. GENERAL APPEARANCE: Sitting, propped up in bed, tired-appearing. EYES: Pupil's equal. Conjunctivae normal. NECK: JVD not raised. Mass not palpable. RESPIRATORY: Effort increased. LUNGS: Decreased breath sounds. CARDIOVASCULAR: First and second sounds normal. Edema present both lower extremity. ABDOMEN: Soft, nontender. Liver and spleen not palpable. PSYCHIATRY: Alert and oriented x3. Mood and affect normal. INVESTIGATIONS: White count 4.1, hemoglobin 10.3, platelets 69. Potassium 4.9, BUN 29, creatinine 1.09. UA positive for leukocyte esterase, increased WBC. Also high squamous epithelial cells. ASSESSMENT: 1. Acute lower gastrointestinal bleed with fresh red blood per rectum. This could be diverticular or hemorrhoidal. 2. Morbid obesity BMI 46.2. 3. Normocytic anemia. 4. Thrombocytopenia not a good BITP. 5. Gastroesophageal reflux disease. 6. Hyperlipidemia. 7. Primary osteoarthritis. 8. Bilateral chronic lower extremity lymphedema. The patient has a pump at home. 9. Primary osteoarthritis. 10.Rule out fluid overload. PLAN: At this point we will start the patient on IV Lasix. D/C lactated Ringer's. Get a 2-D echocardiogram. We will also get a cardiology opinion. We will start the patient on IV Lasix. Care was discussed with the patient's daughter at the bedside. The patient was seen at [facility] and we had the same dilemma there. IV Lasix given there also has started to compromise his renal function. We will see how he does with the same. We will also put a Bay catheter was strict I's and O's. The patient is to bring her lymphedema pump from home and use it here. Normally this kind of lymphedema is rather recalcitrant and often times difficult to treat. The patient is pending EGD and colonoscopy tomorrow. MMODL / IJN: [id number] /
[2018-09-27 07:25] LABS: INR 1.4 (<1.2); Prothrombin Time 13.9 sec (9.0-12.0)
[2018-09-27 07:36] LABS: Albumin 2.4 g/dL (3.5-5.0); Bilirubin, Delta 0.5 mg/dL (0.0-0.2); Bilirubin,Unconjugated 1.3 mg/dL (0.0-1.1); Total Bilirubin 1.8 mg/dL (0.2-1.3); Total Protein 4.7 g/dL (6.3-8.2)
--- NOTE | 2018-09-27 08:03 | P.PN ---
Subjective Progress Note Date: 09/27/18 Principal diagnosis: Multiple medical problems, anemia, thrombocytopenia, positive blood per rectum. Patient slept poorly through the night. No further bleeding from any source n oted. Objective - Vital Signs Vital signs: Vital Signs Temp 97 F L 09/26/18 20:00 Pulse 80 09/27/18 03:50 Resp 18 09/27/18 03:50 BP 105/52 09/27/18 03:50 Pulse Ox 97 09/27/18 03:50 Intake & Output 09/26/18 09/27/18 09/27/18 18:59 06:59 18:59 Intake Total 462 Output Total 602 100 Balance -140 -100 Weight 128.6 kg 100 kg Intake: Oral 462 Output: Urine 600 100 Stool 2 Other: Voiding Method Indwelling Catheter # Voids 1 # Bowel Movements 1 1 - Constitutional General appearance: Present: cooperative, morbidly obese - EENT Eyes: Present: PERRLA ENT: Present: hearing grossly normal - Respiratory Respiratory: bilateral: diminished - Cardiovascular Rhythm: regular Abnormal Heart Sounds: Present: systolic murmur - Gastrointestinal General gastrointestinal: Present: normal bowel sounds - Integumentary Integumentary: Present: cellulitis, decreased turgor - Neurologic Neurologic: Present: CNII-XII intact - Musculoskeletal Musculoskeletal: Present: generalized weakness - Psychiatric Psychiatric: Present: A&O x's 3, appropriate affect, intact judgment & insight - Labs CBC & Chem 7: 09/26/18 05:53 09/26/18 05:53 Labs: Abnormal Lab Results - Last 24 Hours (Table) 09/25/18 09/26/18 09/26/18 Range/Units 12:03 05:53 14:41 Haptoglobin <8.0 L (31.2-198.0) mg/dL PT (9.0-12.0) sec INR (<1.2) Iron Saturation 57.34 H (12.00-45.00) Total Bilirubin (0.2-1.3) mg/dL Unconjugated Bilirubin (0.0-1.1) mg/dL Delta Bilirubin (0.0-0.2) mg/dL AST (14-36) U/L ALT (9-52) U/L Alkaline Phosphatase (38-126) U/L Total Protein (6.3-8.2) g/dL Total Protein (PEP) 4.7 L (6.2-8.2) g/dL Albumin (3.5-5.0) g/dL Albumin (PEP) 2.51 L (3.80-4.90) g/dL Cjaqd-6-Arkjxxxsn 0.49 L (0.60-1.00) g/dL Uwenq-6-Fhekpnxfbym 93.2 L (99.0-242.0) mg/dL Vitamin B12 1759.0 H (200.0-944.0) pg/mL Urine Appearance (Clear) Ur Specific [place] (1.001-1.035) Urine Protein (Negative) Urine Blood (Negative) Ur Leukocyte Esterase (Negative) Urine WBC (0-5) /hpf Urine WBC Clumps (None) /hpf Ur Squamous Epith Cells (0-4) /hpf Urine Mucus (None) /hpf Free [place] LC, Quant 6.48 H (0.33-1.94) mg/dL 09/26/18 09/27/18 09/27/18 Range/Units 17:45 06:35 06:35 Haptoglobin (31.2-198.0) mg/dL PT 13.9 H (9.0-12.0) sec INR 1.4 H (<1.2) Iron Saturation (12.00-45.00) Total Bilirubin 1.8 H (0.2-1.3) mg/dL Unconjugated Bilirubin 1.3 H (0.0-1.1) mg/dL Delta Bilirubin 0.5 H (0.0-0.2) mg/dL AST 70 H (14-36) U/L ALT 64 H (9-52) U/L Alkaline Phosphatase 204 H (38-126) U/L Total Protein 4.7 L (6.3-8.2) g/dL Total Protein (PEP) (6.2-8.2) g/dL Albumin 2.4 L (3.5-5.0) g/dL Albumin (PEP) (3.80-4.90) g/dL Dwiqi-3-Oefpzxzdl (0.60-1.00) g/dL Mfwir-4-Lmsitojfpsa (99.0-242.0) mg/dL Vitamin B12 (200.0-944.0) pg/mL Urine Appearance Cloudy H (Clear) Ur Specific [place] 1.039 H (1.001-1.035) Urine Protein Trace H (Negative) Urine Blood Moderate H (Negative) Ur Leukocyte Esterase Moderate H (Negative) Urine WBC 33 H (0-5) /hpf Urine WBC Clumps Few H (None) /hpf Ur Squamous Epith Cells 17 H (0-4) /hpf Urine Mucus Occasional H (None) /hpf Free [place] LC, Quant (0.33-1.94) mg/dL Microbiology - Last 24 Hours (Table) 09/26/18 17:45 Urine Culture - Preliminary Urine,Voided Assessment and Plan Assessment: No evidence of vaginal bleeding, multiple medical problems, GI workup underway Plan: I will discuss the case with Dr. Lou. Endometrial thickness of 7 mm noted, with ascites. I suspect the slight increased endometrial thickness is an incidental finding, as there has been no evidence of vaginal bleeding. I agree with current gastrointestinal workup, including EGD and colonoscopy today. There is a positive family history of colon cancer, the patient's sister. After resolution of etiology of rectal bleeding, I would be happy to see the patient in the office for outpatient follow-up. We would entertain the option of endometrial biopsy, although this may be an incidental finding sonographically. I have discussed this with the patient's daughter Deb, who is in support of this plan. Time with Patient: Less than 30
[2018-09-27] MEDS: FUROSEMIDE 10 MG/ML 4 ML VIAL IV SCH ×2 (09:20→20:20)
[2018-09-27] MEDS: TRIAMCINOLONE ACET 0.1% OINTMENT 15 GM TUBE TOPICAL SCH ×4 (09:24→21:18)
[2018-09-27] MEDS: NYSTATIN 100,000 UNIT/GM OINT 30 GM TUBE TOPICAL SCH ×4 (09:24→21:17)
--- NOTE | 2018-09-27 10:24 | CONS ---
CONSULTATION CHIEF COMPLAINT: Bilateral leg and arm edema. Ricardo is an 83-year-old lady who was admitted to the hospital with bilateral leg and arm edema. Her predominant symptom is rectal bleeding. She denies chest pain, difficulty in breathing, palpitations, dizziness or syncope. She has bilateral lymphedema and was recently admitted to [facility] with urinary tract infection and at that time developed bilateral upper extremity edema also and this admission is related to bright red blood per rectum. I do not have any echo. I do not have any documented LV function on her. There is no prior history of congestive heart failure or coronary artery disease. The patient has a hemoglobin of 10.3, potassium is 4.9, creatinine is 1. Serum albumin is low at 2.4. Her urine protein level is very low. The exact etiology for hypoalbuminemia is unclear. Her platelet count is low at 69. It was around 50 before. The patient is on IV Lasix at the moment. Her clinical presentation is not consistent with acute onset congestive heart failure. I do not believe the edema is related to congestive heart failure, but I will obtain an echo to document her LV function. PAST MEDICAL HISTORY: Past medical history is significant for lymphedema. MEDICATIONS: Medications include Aldactone 25 b.i.d., omeprazole 20 b.i.d., iron, aspirin 81 mg daily, and Ventolin. ALLERGIES: There are no known drug allergies. FAMILY HISTORY: Family history is negative for premature coronary artery disease. SOCIAL HISTORY: Social history is negative for current smoking, EtOH abuse, or drug abuse. REVIEW OF SYSTEMS: HEENT is unremarkable. CARDIAC: As described above. RESPIRATORY: Negative. GI: Significant for rectal bleeding. GENITOURINARY: Significant for recent UTI. PSYCHOSOCIAL: Negative. ENDOCRINE: Negative. HEMATOLOGICAL: Negative. DERM: Significant for bilateral lymphedema. PHYSICAL EXAMINATION: On exam, patient is comfortable at rest. Afebrile. Heart rate is 80 beats per minute. Blood pressure is 105/50, respiratory rate is 18, O2 sat is 97% on room air. There is no jugular venous distention. Carotid upstroke is diminished. There is no bruit. Chest exam reveals good air entry bilaterally. Heart exam reveals first and second heart sounds. Systolic murmur at the left lower sternal border. Abdomen is soft. Examination of extremities reveals bilateral severe leg edema with chronic dermatitis changes. The patient also has bilateral upper extremity edema. EKG shows sinus rhythm, nonspecific ST-T wave changes. ASSESSMENT: 1. Bilateral lower extremity edema secondary to lymphedema. 2. Bilateral upper extremity edema could be due to lymphedema and exacerbated by hypoalbuminemia. 3. Rectal bleeding. PLAN: I agree with the IV Lasix. I will obtain a 2D echo. If necessary, we may have to give her serum albumin while we are diuresing her. Continue to use the pump for her legs. MMODL / IJN: [id number] /
[2018-09-27] MEDS ORDERED: NA PHOS,M-B/NA PHOS,DI-BA 133 ML ENEMA RECTAL STA (11:13)
[2018-09-27 11:20] LABS: Liver/Kidney Microsome Antibod 1.6 UNITS (<=20)
[2018-09-27 12:21] LABS: Glucose,Whole Blood 79 mg/dL (75-99)
[2018-09-27] MEDS: DEXTROSE 5%-0.45% NACL 1,000 ML IV SCH (12:40)
--- NOTE | 2018-09-27 12:53 | ECHOF ---
Referral Reason:chf MEASUREMENTS -------- HEIGHT: 165.1 cm WEIGHT: 99.8 kg BP: 105/52 RVIDd: 2.9 cm (< 3.3) IVSd: 1.3 cm (0.6 - 1.1) LVIDd: 3.1 cm (3.9 - 5.3) LVPWd: 1.5 cm (0.6 - 1.1) IVSs: 1.8 cm LVIDs: 2.5 cm LVPWs: 1.9 cm LA Diam: 3.5 cm (2.7 - 3.8) LAESV Index (A-L): 34.72 ml/m Ao Diam: 2.9 cm (2.0 - 3.7) AV Cusp: 1.8 cm (1.5 - 2.6) MV EXCURSION: 12.755 mm (> 18.000) MV EF SLOPE: 31 mm/s (70 - 150) EPSS: 0.6 cm MV E Kyle: 1.43 m/s MV DecT: 311 ms MV A Kyle: 1.27 m/s MV E/A Ratio: 1.12 AV maxP.78 mmHg AV meanP.37 mmHg RAP: 5.00 mmHg RVSP: 34.42 mmHg FINDINGS -------- Sinus rhythm. This was a technically adequate study. The left ventricular size is normal. There is moderate concentric left ventricular hypertrophy. O verall left ventricular systolic function is normal with, an EF between 60 - 65 %. The right ventricle is normal in size. LA is moderately dilated 34-39 ml/m2 The right atrium is normal in size. There is mild aortic valve sclerosis. There is mild aortic stenosis present. Peak/mean gradient a cross the Aortic Valve is 25.78mmHg / 13.37mmHg. The mitral valve leaflets are mildly thickened. Moderate mitral annular calcification present. Mild tricuspid regurgitation present. There is borderline pulmonary hypertension. The right ventr icular systolic pressure, as measured by Doppler, is 34.42mmHg. There is no pulmonic regurgitation present. The aortic root size is normal. There is no pericardial effusion. CONCLUSIONS -------- 1. Sinus rhythm. 2. This was a technically adequate study. 3. The left ventricular size is normal. 4. There is moderate concentric left ventricular hypertrophy. 5. Overall left ventricular systolic function is normal with, an EF between 60 - 65 %. 6. The right ventricle is normal in size. 7. LA is moderately dilated 34-39 ml/m2 8. The right atrium is normal in size. 9. There is mild aortic valve sclerosis. 10. There is mild aortic stenosis present. 11. Peak/mean gradient across the Aortic Valve is 25.78mmHg / 13.37mmHg. 12. The mitral valve leaflets are mildly thickened. 13. Moderate mitral annular calcification present. 14. Mild tricuspid regurgitation present. 15. There is borderline pulmonary hypertension. 16. The right ventricular systolic pressure, as measured by Doppler, is 34.42mmHg. 17. There is no pulmonic regurgitation present. 18. The aortic root size is normal. 19. There is no pericardial effusion. PRESS AND BLOW MACHINE TENDER: Elle Larson RDCS
[2018-09-27] MEDS ORDERED: fentaNYL (PF) 50 MCG/ML 2 ML AMP ONE (14:00)
[2018-09-27] MEDS ORDERED: MIDAZOLAM 2 MG/2 ML VIAL ONE (14:00)
[2018-09-27] MEDS ORDERED: KETAMINE 10 MG/ML 20 ML VIAL ONE (14:00)
[2018-09-27] MEDS ORDERED: PHENYLEPHRINE-0.9% NACL SYG 1 MG/10 ML SYRINGE ONE (14:00)
[2018-09-27] MEDS ORDERED: ePHEDrine SULFATE/0.9% NACL/PF 50 MG/5 ML SYRINGE IV ONE (14:00)
[2018-09-27] MEDS ORDERED: LIDOCAINE 1% INJ 10MG/ML (20 ML MDV) ONE (14:00)
[2018-09-27] MEDS ORDERED: PROPOFOL 10 MG/ML 20 ML VIAL IV ONE (14:00)
[2018-09-27] MEDS ORDERED: IV FLUID CONTINUATION 1,000 ML IV ONE (14:01)
--- NOTE | 2018-09-27 15:34 | P.PCN ---
Date of Procedure: 09/27/18 Description of Procedure: Brief history: 83-year-old female with a medical history significant for GERD and hyperlipidemia and recent admission for urinary tract infection who presents with complaints of bright red blood in the toilet and with wiping. The patient was recently hospitalized and treated for a urinary tract infection after which she was discharged to a rehabilitation facility after which she went home. She presents with painless bright red blood per rectum. The patient denies any prior history of rectal bleeding, excessive NSAID use or anticoagulation. She reports a remote history of colonoscopy and EGD approximately 10 years ago but is unsure of the findings of that time. She denies any nausea, vomiting or hematemesis. The patient had stool testing in the ER which was positive for occult blood. She also had vaginal exam with no signs of bleeding noted. Procedure performed: Esophagogastroduodenoscopy Colonoscopy with APC ablation of a cecal AVM Estimated blood loss: Minimal. Preoperative diagnosis: Anemia of acute blood loss, hematochezia Anesthesia: MAC Procedure: After informed consent was obtained from the patient was brought into the endoscopy unit and IV sedation was administered by anesthesia under continuous monitoring. Initially upper endoscopy was done. The Olympus GF 190 video endoscope was inserted inserted into the mouth and esophagus intubated without any difficulty and was gradually advanced into the stomach and duodenum and carefully examined. The bulb and second part of the duodenum appeared normal. The scope was then withdrawn into the stomach adequately insufflated with air and upon careful examination the antrum and body, cardia and fundus appeared normal except for some mild scattered erythema in the antrum and body suggestive of mild gastritis. The scope was then withdrawn into the esophagus. The GE junction was located at 38 cm to the incisors. There was also mild inflammation in the distal esophagus consistent with LA grade a esophagitis. Medium to large size varices were also noted in the esophagus. Patient tolerated the procedure well. At this time the patient continued to remain sedation. Initial digital rectal examination was normal. Olympus CF 190 video colonoscope was then inserted into the rectum and gradually advanced to the cecum without any difficulty. Careful examination was performed as the scope was gradually being withdrawn. The prep was excellent. The cecum, ascending colon, transverse colon, descending colon, sigmoid colon and rectum appeared normal. A nonbleeding arteriovenous bowel preparation was noted in the cecum and treated with argon plasma coagulation therapy. Retroflexion was performed in the rectum and no lesions were noted, rectal varices with mild internal hemorrhoids. Patient tolerated the procedure well. Impression: 1. Gastritis, LA grade a esophagitis, medium to large esophageal varices. No active bleeding or old blood noted on EGD. 2. APC ablation of cecal AVM. No active bleeding in colon. Rectal varices, mild internal hemorrhoids. Recommendations: Findings of this examination were discussed with the patient as well as her daughter. Okay to resume low-sodium diet. Monitor hemoglobin and transfuse as needed. Continue Protonix daily. Variceal banding not performed due to marginal blood pressures during the case and the positional IV, it was not felt to be safe for banding at this time. However would recommend patient follow-up after discharge for repeat EGD with banding or can be started on a nonselective beta bo therapy if blood pressures and heart rate AND appropriate to lower the chance of first variceal bleed.
[2018-09-27] MEDS: ENOXAPARIN 40 MG/0.4 ML SYRINGE SQ SCH (18:21)
[2018-09-27] MEDS: PANTOPRAZOLE 40 MG TABLET PO SCH (18:42)
[2018-09-27] MEDS: SPIRONOLACTONE 25 MG TAB PO SCH (20:19)
[2018-09-27] MEDS: LACTULOSE 20 GM/30 ML CUP PO SCH (20:19)
--- NOTE | 2018-09-27 20:42 | PN ---
PROGRESS NOTE DATE OF SERVICE: 09/27/2018 PRESENTING COMPLAINT: Tired. INTERVAL HISTORY: Patient admitted with bright red blood per rectum. Not felt to be vaginal. The patient is rather tired and lethargic today. Due for endoscopy this afternoon. The patient has been on IV Lasix. Daughter at the bedside. REVIEW OF SYSTEMS: The patient is tired. Not able to obtain any details. CURRENT MEDICATIONS: Reviewed that include IV Lasix. PHYSICAL EXAMINATION: VITAL SIGNS: Temperature 97, pulse 74, respiration 16, blood pressure 108/66, pulse ox 93 percent on room air. GENERAL APPEARANCE: Lying in bed, somewhat tired, lethargic, but arousable. EYES: Pupils equal. Conjunctivae normal. NECK: JVD not raised. Mass not palpable. RESPIRATORY: Effort increased. LUNGS: Decreased breath sounds. CARDIOVASCULAR: First and second sounds normal. Edema present. ABDOMEN: Soft, nontender. Liver and spleen not palpable. PSYCHIATRY: Patient lethargic but arousable. INVESTIGATIONS: Pro-time 13.9, INR 1.8. AST 70, ALT 64, albumin 2.4. Hepatitis screen negative. Abdominal ultrasound shows a cirrhotic morphology of the liver, pelvic ultrasound shows some pelvic ascites and portal venous hypertension. Endoscopy, EGD, colonoscopy shows gastritis, grade C esophagitis, medium to large esophageal varices. No evidence of active bleeding. Cecal AV malformation, cauterized. ASSESSMENT: 1. Acute lower gastrointestinal bleed, probably from cecal AV malformation. 2. 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 3. Morbid obesity BMI 46.2. 4. Normocytic anemia likely from underlying cirrhosis. 5. Thrombocytopenia could be from cirrhosis. 6. Gastroesophageal reflux disease. 7. Hyperlipidemia. 8. IV osteoarthritis. 9. Bilateral chronic lower extremity lymphedema. 10.Primary osteoarthritis. 11.Gastritis, esophagitis. 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 PLAN: The patient's clinical picture explained by cirrhosis, portal hypertension, etc. At this point, we will add Aldactone. We will also check patient's ammonia level and add lactulose. Blood pressure is running on the lower side. Hence we will hold off any beta bo. Daughter is considering rehab. The patient overall prognosis is guarded. MMODL / IJN: [id number] /
[2018-09-28] MEDS: DEXTROSE 5%-0.45% NACL 1,000 ML IV SCH (01:03)
[2018-09-28 03:44] LABS: Albumin 2.3 g/dL (3.5-5.0); Bilirubin, Delta 0.4 mg/dL (0.0-0.2); Bilirubin,Unconjugated 1.2 mg/dL (0.0-1.1); Potassium 3.8 mmol/L (3.5-5.1); Total Bilirubin 1.6 mg/dL (0.2-1.3); Total Protein 4.6 g/dL (6.3-8.2)
[2018-09-28 03:45] LABS: INR 1.4 (<1.2); Prothrombin Time 14.2 sec (9.0-12.0)
[2018-09-28 04:03] LABS: Anisocytosis Slight; Basophils % (A) 1 %; Eosinophils # (A) 0.2 k/uL (0-0.7); Eosinophils % (A) 4 %; HCT 30.4 % (34.0-46.0); HGB 9.9 gm/dL (11.4-16.0); Hypochromasia Slight; Lymphocytes # (A) 0.7 k/uL (1.0-4.8); Lymphocytes % (A) 16 %; MCHC 32.5 g/dL (31.0-37.0); MCV 101.4 fL (80.0-100.0); Macrocytosis Moderate; Mean Platelet Volume 10.1; Monocytes # (A) 0.4 k/uL (0-1.0); Monocytes % (A) 9 %; Neutrophils # (A) 3.2 k/uL (1.3-7.7); Neutrophils % (A) 68 %; RDW 17.8 % (11.5-15.5); WBC 4.8 k/uL (3.8-10.6)
[2018-09-28 04:11] LABS: Platelet Count 68 k/uL (150-450)
--- NOTE | 2018-09-28 06:20 | P.CONS ---
History of Present Illness - Chief Complaint Medical debility - History of Present Illness I had the opportunity to see patient for inpatient rehab consultation with regard to medical debility. She was admitted to [facility] September 24 bright red blood per rectum. Seen by Dr. Botello vaginal bleeding, exam negative. Seen by oncology for anemia. Also seen by Dr. baugh who did perform upper and lower endoscopy. Multiple varices noted upper and lower. Laboratories computed tomography scan of abdomen and chest negative per this reviewer. Pelvic ultrasound negative per this reviewer. Abdominal ultrasound demonstrates consistent with ascites and cirrhosis of liver. PT reports maximal assistance for bed mobility minimal assistance to person for transfers minimal assistance 1 person for gait 110 feet roller walker. OT reports minimal assistance for upper dressing and total assistance for lower dressing. Moderate to maximal assistance for bathing, maximal assistance for toileting and 2 person minimal assistance for transfers. Both therapies note endurance issues. Did not do therapy yesterday due to scope procedures. Previous functional history as elicited patient corroborative by daughter: 83-year-old right-handed white female who is lives in one floor home alone. Retired. Describes independent with own cooking, laundry, sitdown shower and gait with roller walker. Does not drive. Denies tobacco or alcohol. Dr. Marsh is regular doctor. Daughter Deb is medical spokesperson. Review of Systems Review of systems: ENT: Denies sneezes or discharge. Eyes: Denies discharge or photophobia. Cardiac: Denies chest pain or palpitation. Pulmonary: Denies cough or shortness of breath. Breast: Denies discharge or lumps. Gastrointestinal: At least some mild abdominal discomfort. Genitourinary: Denies discharge or frequency. Musculoskeletal: Denies muscle or bone aches. Neurologic: Mild confusion, did not know her age. Generalized weakness. Endocrine: Denies shakes or sweats. Oncology: Denies cancers. Dermatologic: Denies rash, itching, pruritus. ALLERGY/immunology: Denies sneezes, rashes. Past Medical History Past Medical History: GERD/Reflux, Hyperlipidemia, Osteoarthritis (OA) Additional Past Medical History / Comment(s): lymphedema, UTI History of Any Multi-Drug Resistant Organisms: None Reported Past Surgical History: Appendectomy, Cholecystectomy, Orthopedic Surgery Additional Past Surgical History / Comment(s): right total knee Past Psychological History: No Psychological Hx Reported Smoking Status: Never smoker Past Alcohol Use History: None Reported Past Drug Use History: None Reported - Past Family History Mother History Unknown: Yes Father History Unknown: Yes Brother(s) Family Medical History: Dementia Daughter(s) Family Medical History: Thyroid Disorder Medications and Allergies Home Medications Medication Instructions Recorded Confirmed Type Albuterol Inhaler [Ventolin Hfa 2 puff INHALATION RT-BID 09/24/18 09/24/18 History Inhaler] Aspirin [[place] Aspirin EC] 81 mg PO DAILY 09/24/18 09/24/18 History Ferrous Sulfate [Iron] 325 mg PO DAILY 09/24/18 09/24/18 History Omeprazole 20 mg PO BID 09/24/18 09/24/18 History Potassium Chloride ER [K-Dur 10] 10 meq PO DAILY 09/24/18 09/24/18 History Spironolactone [Aldactone] 25 mg PO BID 09/24/18 09/24/18 History Vit D 50mcg 50 mcg PO DAILY 09/24/18 09/24/18 History Allergies Allergy/AdvReac Type Severity Reaction Status Date / Time No Known Allergies Allergy Verified 09/24/18 10:59 Physical Exam Vitals: Vital Signs Temp Pulse Pulse Resp BP Pulse Ox 09/28/18 03:08 96.6 F L 73 16 104/55 99 09/28/18 01:08 78 92/53 09/28/18 00:00 76 18 99/55 96 09/27/18 20:00 71 17 109/51 99 09/27/18 18:30 97.1 F L 16 106/51 99 09/27/18 17:30 82 18 98/65 100 09/27/18 17:15 82 18 98/44 100 09/27/18 17:00 82 18 99/58 100 09/27/18 16:45 80 18 114/54 100 09/27/18 16:31 77 18 90/57 100 09/27/18 16:16 77 18 89/41 100 09/27/18 16:07 88/50 09/27/18 16:01 74 18 81/48 100 09/27/18 15:46 76 18 85/48 100 09/27/18 15:37 97 F L 76 18 87/48 98 09/27/18 13:36 97.0 F L 74 16 108/66 93 L 09/27/18 11:50 97.0 F L 74 16 108/66 93 L 09/27/18 08:55 97.1 F L 77 18 102/62 98 Intake and Output 09/27/18 09/27/18 09/28/18 14:59 22:59 06:59 Intake Total 400 0 Output Total 1400 425 Balance 400 -1400 -425 Intake: IV 400 0 Output: Urine 1400 425 Other: Voiding Method Indwelling Catheter Indwelling Catheter Indwelling Catheter # Bowel Movements 1 Weight 99.8 kg Skin: Atrophic, intact. General: Obese build and comfortable appearance. Head: Normocephalic, atraumatic. Eyes: Symmetric. Pupils equal round. Ears: Symmetric. Hearing within normal limits. Mouth: Clear. Neck: Supple. Carotid without bruit. Cardiac: Regular rate and rhythm. Lungs: Clear anteriorly and posteriorly. Abdomen: Soft active nontender. Extremities: Normal tone. Neurological: Mental status: Alert, cooperative, pleasant. Cranial nerves: Symmetric facial tone and trapezius. Motor: Can elevate all 4 limbs off of bed. Sensation: Intact throughout. DTRs: Symmetric and equal throughout. Mobility: Sits with physical assistance. Results CBC & Chem 7: 09/28/18 03:00 09/28/18 03:00 Labs: Abnormal Lab Results - Last 24 Hours (Table) 09/27/18 09/27/18 09/28/18 Range/Units 06:35 06:35 03:00 RBC (3.80-5.40) m/uL Hgb (11.4-16.0) gm/dL Hct (34.0-46.0) % MCV (80.0-100.0) fL RDW (11.5-15.5) % Plt Count (150-450) k/uL Lymphocytes # (1.0-4.8) k/uL PT 13.9 H 14.2 H (9.0-12.0) sec INR 1.4 H 1.4 H (<1.2) BUN (7-17) mg/dL Creatinine (0.52-1.04) mg/dL Total Bilirubin 1.8 H (0.2-1.3) mg/dL Unconjugated Bilirubin 1.3 H (0.0-1.1) mg/dL Delta Bilirubin 0.5 H (0.0-0.2) mg/dL AST 70 H (14-36) U/L ALT 64 H (9-52) U/L Alkaline Phosphatase 204 H (38-126) U/L Total Protein 4.7 L (6.3-8.2) g/dL Albumin 2.4 L (3.5-5.0) g/dL 09/28/18 09/28/18 Range/Units 03:00 03:00 RBC 3.00 L (3.80-5.40) m/uL Hgb 9.9 L (11.4-16.0) gm/dL Hct 30.4 L (34.0-46.0) % MCV 101.4 H (80.0-100.0) fL RDW 17.8 H (11.5-15.5) % Plt Count 68 L (150-450) k/uL Lymphocytes # 0.7 L (1.0-4.8) k/uL PT (9.0-12.0) sec INR (<1.2) BUN 32 H (7-17) mg/dL Creatinine 1.11 H (0.52-1.04) mg/dL Total Bilirubin 1.6 H (0.2-1.3) mg/dL Unconjugated Bilirubin 1.2 H (0.0-1.1) mg/dL Delta Bilirubin 0.4 H (0.0-0.2) mg/dL AST 67 H (14-36) U/L ALT 61 H (9-52) U/L Alkaline Phosphatase 193 H (38-126) U/L Total Protein 4.6 L (6.3-8.2) g/dL Albumin 2.3 L (3.5-5.0) g/dL Microbiology - Last 24 Hours (Table) 09/26/18 17:45 Urine Culture - Preliminary Urine,Voided Group D Enterococcus Assessment and Plan (1) GI bleeding Current Visit: Yes Status: Acute Code(s): K92.2 - GASTROINTESTINAL HEMORRHAGE, UNSPECIFIED SNOMED Code(s): 67534375 Plan: Impression: 1. Medical debility. 2. Upper and lower GI bleed due to varices. 3. Obesity. 4. GERD. 5. Dyslipidemia. 6. Osteoarthritis. Comments and plan: At this time PT and OT are ongoing. Safety concerns noted. Patient and daughter voice the patient has previously been on inpatient rehab and with benefit. They're hopeful to return. Have discussed that this is the goal.
[2018-09-28] MEDS: PANTOPRAZOLE 40 MG TABLET PO SCH (06:55)
[2018-09-28] MEDS: ALBUTEROL NEBULIZED 2.5 MG/3 ML INHALATION PRN (08:20)
[2018-09-28] MEDS: ENOXAPARIN 40 MG/0.4 ML SYRINGE SQ SCH (10:30)
[2018-09-28] MEDS: FUROSEMIDE 10 MG/ML 4 ML VIAL IV SCH ×2 (10:30→20:55)
[2018-09-28] MEDS: LACTULOSE 20 GM/30 ML CUP PO SCH (10:30)
[2018-09-28] MEDS: SPIRONOLACTONE 25 MG TAB PO SCH (10:31)
[2018-09-28] MEDS: TRIAMCINOLONE ACET 0.1% OINTMENT 15 GM TUBE TOPICAL SCH ×4 (10:32→22:53)
[2018-09-28] MEDS: NYSTATIN 100,000 UNIT/GM OINT 30 GM TUBE TOPICAL SCH ×4 (10:32→22:53)
--- NOTE | 2018-09-28 11:59 | P.PN ---
Subjective Progress Note Date: 09/28/18 Principal diagnosis: Elevated liver enzymes hematochezia Status post EGD colonoscopy yesterday with findings of esophageal varices cecal AVM. No further bleeding. Mildly confused this morning. Inability with PT. INR 1.4. Total bilirubin 1.6. AST 67. ALT 61 AP 193. Hepatitis screen nonreactive. Hemoglobin 9.9. Platelet 60,000. Denies abdominal pain. Objective - Vital Signs Vital signs: Vital Signs Temp 96.6 F L 09/28/18 03:08 Pulse 75 09/28/18 08:31 Resp 18 09/28/18 03:08 BP 104/55 09/28/18 03:08 Pulse Ox 99 09/28/18 03:08 Intake & Output 09/27/18 09/28/18 09/28/18 18:59 06:59 18:59 Intake Total 400 220 Output Total 900 925 Balance -500 -925 220 Weight 99.8 kg Intake: IV 400 Oral 220 Output: Urine 900 925 Other: Voiding Method Indwelling Catheter Indwelling Catheter # Bowel Movements 1 - Exam NGeneral appearance: The patient is alert, knows self and place. HET: Head is normocephalic and atraumatic. Pupils are equal and reactive. Oropharynx is clear without lesions. Neck: Supple without lymphadenopathy. Trachea midline. Heart: S1 S2. Regular rate and rhythm. Lungs: No crackles or wheezes are heard. Abdomen: Soft, nontender, nondistended with bowel sounds. No peritoneal signs. No palpable organomegaly or masses. Extremities: Normal skin color and turgor. No cyanosis, rash, ulceration, clubbing, or edema. Radial and pedal pulses are 2/4 bilaterally. Neurological: No focal deficits. Strength and sensation are grossly intact.am - Labs CBC & Chem 7: 09/28/18 03:00 09/28/18 03:00 Labs: Abnormal Lab Results - Last 24 Hours (Table) 09/28/18 09/28/18 09/28/18 Range/Units 03:00 03:00 03:00 RBC 3.00 L (3.80-5.40) m/uL Hgb 9.9 L (11.4-16.0) gm/dL Hct 30.4 L (34.0-46.0) % MCV 101.4 H (80.0-100.0) fL RDW 17.8 H (11.5-15.5) % Plt Count 68 L (150-450) k/uL Lymphocytes # 0.7 L (1.0-4.8) k/uL PT 14.2 H (9.0-12.0) sec INR 1.4 H (<1.2) BUN 32 H (7-17) mg/dL Creatinine 1.11 H (0.52-1.04) mg/dL Total Bilirubin 1.6 H (0.2-1.3) mg/dL Unconjugated Bilirubin 1.2 H (0.0-1.1) mg/dL Delta Bilirubin 0.4 H (0.0-0.2) mg/dL AST 67 H (14-36) U/L ALT 61 H (9-52) U/L Alkaline Phosphatase 193 H (38-126) U/L Total Protein 4.6 L (6.3-8.2) g/dL Albumin 2.3 L (3.5-5.0) g/dL Microbiology - Last 24 Hours (Table) 09/26/18 17:45 Urine Culture - Preliminary Urine,Voided Group D Enterococcus Assessment and Plan (1) GI bleeding Narrative/Plan: Status post EGD colonoscopy esophageal varices cecal AVM status post APC. 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 Esophageal varices identified per endoscopic exam. Current Visit: Yes Status: Acute Code(s): R74.8 - ABNORMAL LEVELS OF OTHER SERUM ENZYMES SNOMED Code(s): 846519895 (3) Normocytic anemia Current Visit: Yes Status: Acute Code(s): D64.9 - ANEMIA, UNSPECIFIED SNOMED Code(s): 856506166 (4) Esophageal varices Current Visit: Yes Status: Acute Code(s): I85.00 - ESOPHAGEAL VARICES W ITHOUT BLEEDING SNOMED Code(s): 36886842 (5) AVM (arteriovenous malformation) of colon with hemorrhage Current Visit: Yes Status: Acute Code(s): K55.21 - ANGIODYSPLASIA OF COLON WITH HEMORRHAGE SNOMED Code(s): 274677529 Plan: 1. We'll check ammonia. Daily monitoring of chemistries. CBC monitoring. We'll continue to follow with you. GI prophylaxis. Assessment and plan a care discussed with Dr. Castillo
--- NOTE | 2018-09-28 14:38 | P.PN ---
Subjective Progress Note Date: 09/28/18 This is an 83-year-old female admitted to the hospital with bilateral leg and arm edema, she is known to have a chronic lymphedema. Her predominant symptom was rectal bleeding. She denied having any chest discomfort or difficulty in breathing, no dizziness or syncope. Patient had recently been at [facility] with the urinary tract infection and developed this bilateral upper extremity edema. Patient had been on IV Lasix, overall the upper extremity edema has improved. Patient is quite sleepy today, daughter is at bedside. An echocardiogram with Doppler study was performed which revealed a normal left ventricular systolic function. Blood pressure 104/56 with a heart rate in the 70s, 99% on room air. White blood cell count 4.8, hemoglobin 9.9, platelet count 68 . Sodium 137, potassium 3.8, BUN 32 and creatinine 1.1. Total bilirubin 1.6, conjugated bilirubin 1.2.the bilirubin 0.4 AST 67 ALT 61 alk phos 193. Positive UTI. Objective - Vital Signs Vital signs: Vital Signs Temp 96.6 F L 09/28/18 03:08 Pulse 75 09/28/18 08:31 Resp 18 09/28/18 03:08 BP 104/55 09/28/18 03:08 Pulse Ox 99 09/28/18 03:08 Intake & Output 09/27/18 09/28/18 09/28/18 18:59 06:59 18:59 Intake Total 400 220 Output Total 900 925 Balance -500 -925 220 Weight 99.8 kg Intake: IV 400 Oral 220 Output: Urine 900 925 Other: Voiding Method Indwelling Catheter Indwelling Catheter # Bowel Movements 1 - Exam General appearance: The patient is alert, knows self and place. HET: Head is normocephalic and atraumatic. Pupils are equal and reactive. Oropharynx is clear without lesions. Neck: Supple without lymphadenopathy. Trachea midline. Heart: S1 S2. Regular rate and rhythm. Lungs: No crackles or wheezes are heard. Abdomen: Soft, nontender, nondistended with bowel sounds. No peritoneal signs. No palpable organomegaly or masses. Extremities: Normal skin color and turgor. No cyanosis, rash, ulceration, clubbing, 2-3+ edema . Radial and pedal pulses are 2/4 bilaterally. Bilateral upper extremity edema, improved from yesterday Neurological: No focal deficits. Strength and sensation are grossly intact.am - Labs CBC & Chem 7: 09/28/18 03:00 09/28/18 03:00 Labs: Abnormal Lab Results - Last 24 Hours (Table) 09/28/18 09/28/18 09/28/18 Range/Units 03:00 03:00 03:00 RBC 3.00 L (3.80-5.40) m/uL Hgb 9.9 L (11.4-16.0) gm/dL Hct 30.4 L (34.0-46.0) % MCV 101.4 H (80.0-100.0) fL RDW 17.8 H (11.5-15.5) % Plt Count 68 L (150-450) k/uL Lymphocytes # 0.7 L (1.0-4.8) k/uL PT 14.2 H (9.0-12.0) sec INR 1.4 H (<1.2) BUN 32 H (7-17) mg/dL Creatinine 1.11 H (0.52-1.04) mg/dL Total Bilirubin 1.6 H (0.2-1.3) mg/dL Unconjugated Bilirubin 1.2 H (0.0-1.1) mg/dL Delta Bilirubin 0.4 H (0.0-0.2) mg/dL AST 67 H (14-36) U/L ALT 61 H (9-52) U/L Alkaline Phosphatase 193 H (38-126) U/L Total Protein 4.6 L (6.3-8.2) g/dL Albumin 2.3 L (3.5-5.0) g/dL Microbiology - Last 24 Hours (Table) 09/26/18 17:45 Urine Culture - Preliminary Urine,Voided Group D Enterococcus Assessment and Plan Plan: Assessment and plan #1 bilateral lower extremity edema secondary to chronic lymphedema #2 bilateral upper extremity edema, could also be secondary to chronic lymphedema exacerbated by hypo albuminemia #3 rectal bleeding, EGD and colonoscopy were performed which revealed gastritis, esophagitis, ablation of an AVM was performed, no active bleeding #4 subacute transaminitis, elevated liver enzymes and bilirubin, negative recent testing for hepatitis Plan Echocardiogram with Doppler study was performed which revealed a normal left ventricular systolic function. Patient continues to be on IV Lasix. Her weight is down today overall. From cardiology's perspective we will follow this patient along with you now on an as-needed basis only, please don't hesitate to call with any questions. DNP note has been reviewed, I agree with a documented findings and plan of care. Patient was seen and examined.
--- NOTE | 2018-09-28 23:01 | PN ---
PROGRESS NOTE DATE OF SERVICE: September 28, 2018. PRESENTING COMPLAINT: Tired. INTERVAL HISTORY: The patient admitted with bright red blood per rectum, found to have AV malformation in the rectal area. Also, now felt to have cirrhosis with portal hypertension causing ascites. The patient is rather lethargic, barely eating much. Daughter at the bedside. The patient has been getting IV Lasix. REVIEW OF SYSTEMS: Was attempted but the patient is really not answering much questions. MEDICATIONS: Current medications reviewed that include IV Lasix, lactulose, Aldactone. PHYSICAL EXAMINATION: VITAL SIGNS: Temperature 97, pulse 59, respirations 20, blood pressure 95/60. Pulse ox 93 percent on room air. GENERAL APPEARANCE: Sitting up, somewhat lethargic but awake. EYES: Pupils equal. Conjunctivae normal. NECK: JVD unable to assess. Mass not palpable. RESPIRATORY: Effort increased. LUNGS: Decreased breath sounds. CARDIOVASCULAR: 1st and 2nd sounds normal. Edema present. ABDOMEN: Soft, nontender. Liver and spleen not palpable. PSYCHIATRY: Lethargic but may answer occasional questions. INVESTIGATIONS: White count 4.8, hemoglobin 9.9, platelets 68. Potassium 3.8, BUN 32, creatinine 1.11, AST 16, ALT 61. Ammonia level is less than 9. ASSESSMENT: 1. Acute lower gastrointestinal bleed from cecal AV malformation status post cauterization. 2. Cirrhosis of unknown etiology with portal hypertension causing fluid overload and ascites. 3. Morbid obesity, BMI of 46.2. 4. Normocytic anemia likely from underlying cirrhosis. 5. Thrombocytopenia likely from underlying cirrhosis. 6. Gastroesophageal reflux disease. 7. Hyperlipidemia. 8. Primary osteoarthritis. 9. Chronic bilateral lower extremity lymphedema. 10.Gastritis, esophagitis, cecal AV malformation, possible source of bleeding. PLAN: I had a very lengthy talk with the daughter at the bedside. Given the cirrhosis, portal hypertension, ascites, prognosis is rather guarded. My concern for hepatic encephalopathy. I started the patient on lactulose, but the patient is not really taking the same. The patient also getting diuresed. The patient has not really been out of bed as she is rather lethargic. Total time spent today was about 40 minutes with over 25 minutes of discussion. MMODL / IJN: [id number] /
[2018-09-29] MEDS: PANTOPRAZOLE 40 MG TABLET PO SCH (06:25)
[2018-09-29 07:46] LABS: INR 1.4 (<1.2); Prothrombin Time 13.9 sec (9.0-12.0)
[2018-09-29 08:04] LABS: Albumin 2.4 g/dL (3.5-5.0); Bilirubin, Delta 0.5 mg/dL (0.0-0.2); Bilirubin,Unconjugated 1.4 mg/dL (0.0-1.1); Total Bilirubin 1.9 mg/dL (0.2-1.3); Total Protein 4.8 g/dL (6.3-8.2)
[2018-09-29] MEDS: FUROSEMIDE 10 MG/ML 4 ML VIAL IV SCH (10:02)
[2018-09-29] MEDS: NYSTATIN 100,000 UNIT/GM OINT 30 GM TUBE TOPICAL SCH ×4 (10:03→20:48)
[2018-09-29] MEDS: TRIAMCINOLONE ACET 0.1% OINTMENT 15 GM TUBE TOPICAL SCH ×4 (10:03→20:48)
[2018-09-29] MEDS: LACTULOSE 20 GM/30 ML CUP PO SCH (10:14)
[2018-09-29] MEDS: SPIRONOLACTONE 25 MG TAB PO SCH (10:28)
--- NOTE | 2018-09-29 13:17 | P.PN ---
Subjective Progress Note Date: 09/29/18 Principal diagnosis: Elevated liver enzymes hematochezia Status post EGD colonoscopy findings of esophageal varices cecal AVM. No further bleeding. Confused. Enterococcus UTI per culture. INR stable 1.4. Total bilirubin 1.9. AST 69. ALT 59. AP 192. Hemoglobin 9.9. Denies abdominal pain; daughter at bedside. Objective - Vital Signs Vital signs: Vital Signs Temp 95.5 F L 09/29/18 08:00 Pulse 73 09/29/18 04:00 Resp 20 09/29/18 12:41 BP 98/52 09/29/18 08:00 Pulse Ox 93 L 09/29/18 08:00 Intake & Output 09/28/18 09/29/18 09/29/18 18:59 06:59 18:59 Intake Total 442 180 Output Total 525 Balance 442 -525 180 Weight 99.7 kg Intake: Oral 442 180 Output: Urine 525 Other: Voiding Method Indwelling Catheter Indwelling Catheter Indwelling Catheter - Exam NGeneral appearance: The patient is alert, knows self and place. HET: Head is normocephalic and atraumatic. Pupils are equal and reactive. Oropharynx is clear without lesions. Neck: Supple without lymphadenopathy. Trachea midline. Heart: S1 S2. Regular rate and rhythm. Lungs: No crackles or wheezes are heard. Abdomen: Soft, nontender, nondistended with bowel sounds. No peritoneal signs. No palpable organomegaly or masses. Extremities: Normal skin color and turgor. No cyanosis, rash, ulceration, clubbing, or edema. Radial and pedal pulses are 2/4 bilaterally. Neurological: No focal deficits. Strength and sensation are grossly intact.am - Labs CBC & Chem 7: 09/28/18 03:00 09/28/18 03:00 Labs: Abnormal Lab Results - Last 24 Hours (Table) 09/29/18 09/29/18 Range/Units 07:05 07:05 PT 13.9 H (9.0-12.0) sec INR 1.4 H (<1.2) Total Bilirubin 1.9 H (0.2-1.3) mg/dL Unconjugated Bilirubin 1.4 H (0.0-1.1) mg/dL Delta Bilirubin 0.5 H (0.0-0.2) mg/dL AST 69 H (14-36) U/L ALT 59 H (9-52) U/L Alkaline Phosphatase 192 H (38-126) U/L Total Protein 4.8 L (6.3-8.2) g/dL Albumin 2.4 L (3.5-5.0) g/dL Microbiology - Last 24 Hours (Table) 09/26/18 17:45 Urine Culture - Final Urine,Voided Enterococcus faecalis Assessment and Plan (1) GI bleeding Narrative/Plan: Status post EGD colonoscopy esophageal varices cecal AVM status post APC. Current Visit: Yes Status: Acute Code(s): K92.2 - GASTROINTESTINAL HEMORRHAGE, UNSPECIFIED SNOMED Code(s): 08953019 (2) Elevated liver enzymes Narrative/Plan: Suspect nonalcoholic liver disease cirrhosis so far chronic liver disease serology workup has been negative. Esophageal varices identified per endoscopic exam. Current Visit: Yes Status: Acute Code(s): R74.8 - ABNORMAL LEVELS OF OTHER SERUM ENZYMES SNOMED Code(s): 498975842 (3) Normocytic anemia Current Visit: Yes Status: Acute Code(s): D64.9 - ANEMIA, UNSPECIFIED SNOMED Code(s): 364685860 (4) Esophageal varices Current Visit: Yes Status: Acute Code(s): I85.00 - ESOPHAGEAL VARICES WITHOUT BLEEDING SNOMED Code(s): 83610326 (5) AVM (arteriovenous malformation) of colon with hemorrhage Current Visit: Yes Status: Acute Code(s): K55.21 - ANGIODYSPLASIA OF COLON WITH HEMORRHAGE SNOMED Code(s): 473730714 Plan: 1. Ammonia reviewed less than 9 confusion most likely related to UTI. Daily monitoring of chemistries. CBC monitoring. We'll follow as needed. GI prophylaxis. Patient will follow up in GI office 2-3 weeks after discharge. Assessment and plan a care discussed with Dr. Castillo
[2018-09-29] MEDS: ENOXAPARIN 40 MG/0.4 ML SYRINGE SQ SCH (14:42)
--- NOTE | 2018-09-29 23:01 | PN ---
PROGRESS NOTE DATE OF SERVICE: 09/29/2018 PRESENTING COMPLAINT: Tired. INTERVAL HISTORY: Patient admitted with bright red blood per rectum. Found to have AV malformation that was cauterized. The patient also felt to have complications of cirrhosis and portal hypertension causing ascites with fluid overload. The patient is slightly less lethargic today but still not eating much. The patient walked about 30 feet with a walker. The patient remains on IV Lasix. Answering questions a bit more today. REVIEW OF SYSTEMS: Done, attempted for constitutional, cardiovascular, GI, pulmonary and relevant findings as above. Patient had one bowel right-sided. CURRENT MEDICATIONS: Reviewed and include IV Lasix, lactulose, Aldactone. The patient did have 1 bowel movement last night. PHYSICAL EXAMINATION: VITAL SIGNS: Temperature 95.5, pulse 73, respiration 20, blood pressure 98/52, pulse ox 93 percent on room air. GENERAL APPEARANCE: Sitting up, a bit less lethargic but not fully awake. EYES: Pupils equal. Conjunctivae normal. NECK: JVD unable to assess. Mass not palpable. RESPIRATORY: Effort increased. LUNGS: Diminished breath sounds. CARDIOVASCULAR: 1st and 2nd sounds. Edema present. ABDOMEN: Soft, nontender. Liver and spleen not palpable. PSYCHIATRY: Less lethargic. Able to answer simple questions. INVESTIGATIONS: White count 4.8, hemoglobin 9.9, platelets 68. Potassium 3.8, BUN 32, creatinine 1.11, AST 67, ALT 61, albumin 2.3. ASSESSMENT: 1. Acute lower gastrointestinal bleed from cecal AV malformation status post cauterization. 2. Cirrhosis of unknown etiology with portal hypertension causing fluid overload and ascites. 3. Morbid obesity BMI 46.2. 4. Hypoalbuminemia with combination of moderate protein-calorie malnutrition from cirrhosis. 5. Normocytic anemia likely from underlying cirrhosis. 6. Thrombocytopenia likely from cirrhosis. 7. Gastroesophageal reflux disease. 8. Hyperlipidemia. 9. Primary osteoarthritis. 10.Chronic bilateral lower extremity lymphedema. 11.Gastritis, acute esophagitis, cecal AV malformation, possibly source of bleeding. 12.Hepatic encephalopathy for which patient is on lactulose. 13.Gait dysfunction uses a walker. PLAN: I had a lengthy talk with the patient's daughter. Also then spoke with Dr. Castillo and the daughter. We agreed, overall prognosis is guarded. I am going to increase patient's lactulose 30 grams twice a day to titrate to 2 or 3 bowel movements a day. We will switch the patient to oral Lasix in the morning. Total time spent today was about 40 minutes with over 25-30 minutes of discussion. MMSYLWIAL / IJN: [id number] /
[2018-09-30 05:17] VITALS: RESP 18
[2018-09-30] MEDS: PANTOPRAZOLE 40 MG TABLET PO SCH (06:37)
[2018-09-30 07:43] LABS: INR 1.5 (<1.2); Prothrombin Time 14.7 sec (9.0-12.0)
[2018-09-30 07:49] LABS: Albumin 2.4 g/dL (3.5-5.0); Bilirubin, Delta 0.6 mg/dL (0.0-0.2); Bilirubin,Unconjugated 1.6 mg/dL (0.0-1.1); Total Bilirubin 2.2 mg/dL (0.2-1.3); Total Protein 4.6 g/dL (6.3-8.2)
[2018-09-30] MEDS ORDERED: SPIRONOLACTONE 25 MG TAB PO SCH (09:00)
[2018-09-30] MEDS ORDERED: FUROSEMIDE 40 MG TAB PO SCH (09:00)
[2018-09-30] MEDS: ENOXAPARIN 40 MG/0.4 ML SYRINGE SQ SCH (09:43)
[2018-09-30] MEDS: LACTULOSE 20 GM/30 ML CUP PO SCH (09:43)
[2018-09-30] MEDS: TRIAMCINOLONE ACET 0.1% OINTMENT 15 GM TUBE TOPICAL SCH ×2 (09:52→14:35)
[2018-09-30] MEDS: NYSTATIN 100,000 UNIT/GM OINT 30 GM TUBE TOPICAL SCH ×2 (09:52→14:35)
[2018-09-30 13:11] VITALS: BMI 36.5
[2018-09-30 14:43] VITALS: PULSE 71
--- NOTE | 2018-09-30 15:21 | DS ---
DISCHARGE SUMMARY DATE OF ADMISSION: 09/24/2018 DATE OF DISCHARGE: 09/30/2018 FINAL DIAGNOSES: 1. Acute lower gastrointestinal bleed from cecal AV malformation, status post cauterization. 2. Cryptogenic cirrhosis with portal hypertension causing severe fluid overload and ascites. 3. Morbid obesity; body mass index 46.2. 4. Hypoalbuminemia with a combination of moderate protein-calorie malnutrition and from cirrhosis. 5. Normocytic anemia, likely from underlying cirrhosis. 6. Thrombocytopenia from cirrhosis. 7. Gastroesophageal reflux disease. 8. Hyperlipidemia. 9. Primary osteoarthritis. 10.Chronic bilateral lower extremity lymphedema. 11.Gastritis, acute esophagitis and cecal AV malformation source of bleeding. 12.Hepatic encephalopathy, for which patient is on lactulose. 13.Gait dysfunction. Uses a walker. HOSPITAL COURSE: This patient presented with lower GI bleed. Colonoscopy did show a cecal AV malformation that was cauterized. She also had an upper endoscopy done that showed gastritis and acute esophagitis and esophageal varices. Ultrasound did confirm patient to have cirrhosis, which is felt to be responsible for a lot of her symptoms, including ascites, edema. The patient was given IV Lasix. She was also put on lactulose. Patient had a CT scan of the abdomen, chest, pelvis. Prognosis is guarded. This was discussed with the daughter repeatedly and also Dr. Castillo. Patient will be going down to [facility] for inpatient rehab. Patient is tolerating some diet. Overall not doing better. She did walk about 30 feet with Physical Therapy. PHYSICAL EXAMINATION: Temperature 98, pulse 71, respiration 18, blood pressure 105/51, pulse ox 93% on room air. GENERAL APPEARANCE: Sitting up, tired but answering questions. LUNGS: Decreased breath sounds. Decreased edema. INVESTIGATIONS: White count 4.8, hemoglobin 9.9, platelets 68. Potassium 3.8, BUN 32, creatinine 1.11. Albumin 2.4. CONSULTATIONS: 1. Dr. Castillo from GI. 2. Dr. Aidan Rudolph from Cardiology. 3. Dr. Terence Campa from Rehab Medicine. 4. Dr. Botello from [facility]. ADDITIONAL INFORMATION: Patient did have a 2-D echocardiogram that was unremarkable. Patient had some abnormal endometrium , not felt to be of clinical consequence at this point. DISCHARGE MEDICATIONS: 1. Iron 325 p.o. daily. 2. Omeprazole 20 mg b.i.d. 3. Ventolin 2.5 b.i.d. p.r.n. 4. Lasix 40 mg p.o. daily. 5. Lactulose 30 grams p.o. b.i.d. 6. Mycostatin 1 application topically q.i.d. 7. Aldactone 100 mg p.o. daily. 8. Kenalog 0.1% topically q.i.d. Follow up with Dr. Castillo on 10/25/2018. Follow up with Dr. Tera Marsh p.r.n. DISPOSITION: Inpatient rehab at [facility]. Follow up with Dr. Terence Campa at the rehab center. Discussion and discharge planning more than 35 minutes. MMODL / IJN: [id number] /
[2018-09-30 15:36] VITALS: BP 113/59; TEMP 97.7
== END 2018-09-30 17:05 | DRG 378 ==
LOC: EC 09:58 → 3SCARD 12:53
PROVIDERS: ADMIT Hospitalist; ATTEND Hospitalist
PROC: 0DJ08ZZ Inspection of Upper Intestinal Tract, Via Natural or Artificial Opening Endoscopic (ICD-10-PCS; principal; 2018-09-27 14:00)
PROC: 0W3P8ZZ Control Bleeding in Gastrointestinal Tract, Via Natural or Artificial Opening Endoscopic (ICD-10-PCS; 2018-09-27 14:00)
DX: K55.21 Angiodysplasia of colon with hemorrhage (principal); N39.0 Urinary tract infection, site not specified; D62 Acute posthemorrhagic anemia; K76.6 Portal hypertension; I85.10 Secondary esophageal varices without bleeding; E44.0 Moderate protein-calorie malnutrition; Z68.42 Body mass index [BMI] 45.0-49.9, adult; R18.8 Other ascites; B37.2 Candidiasis of skin and nail; E87.5 Hyperkalemia; K21.0 Gastro-esophageal reflux disease with esophagitis; K29.70 Gastritis, unspecified, without bleeding; E78.5 Hyperlipidemia, unspecified; K64.8 Other hemorrhoids; B95.2 Enterococcus as the cause of diseases classified elsewhere; R74.0 Nonspecific elevation of levels of transaminase and lactic acid dehydrogenase [LDH]; I89.0 Lymphedema, not elsewhere classified; R53.81 Other malaise; D69.59 Other secondary thrombocytopenia; E66.01 Morbid (severe) obesity due to excess calories; K74.69 Other cirrhosis of liver; M19.91 Primary osteoarthritis, unspecified site; R53.83 Other fatigue; Z79.899 Other long term (current) drug therapy; Z79.82 Long term (current) use of aspirin; Z87.440 Personal history of urinary (tract) infections; Z90.49 Acquired absence of other specified parts of digestive tract; Z80.0 Family history of malignant neoplasm of digestive organs
CPT/HCPCS: 36410; 36415; 43235; 45382; 71260; 74177; 76700; 76856; 76937; 80048; 80053; 80074; 80076; 81001; 82103; 82105; 82140; 82248; 82272; 82390; 82607; 82728; 82746; 82784; 83010; 83516; 83540; 83550; 83615; 83735; 83883; 83921; 84165; 84484; 85025; 85027; 85045; 85379; 85384; 85610; 85730; 86038; 86334; 86376; 87077; 87086; 87186; 93005; 93306; 94640; 96365; 96375; 99285